=== PATIENT | male | born 1950 | race Caucasian/White ===

== ENCOUNTER → 2017-01-03 | Outpatient (CLI) | payer MEDICARE ==
[~2017-01-03] MED LIST: /LOR25TA PO; GABA300C2 PO; LOSA100T36 PO; MELO7.5T3 PO; NITR0.4D6 SL; OMEP40CA2 PO; TAMS0.4C PO; TYLE325T5 PO
--- NOTE | 2017-01-03 13:38 | REP ---
PA and lateral chest: Comparison is the portable chest of 06/25/2012. The lung leyva are clear. The cardiac size is normal The kristen, mediastinum, and bony thorax are unremarkable. Impression: Negative PA and lateral chest. Signed by Esequiel Rivas MD 01/03/2017 01:30 P
== END ==
LOC: M WUC 13:19
PROVIDERS: ATTEND Internal Medicine
DX: Z01.810 Encounter for preprocedural cardiovascular examination (principal); R05 Cough; Z72.0 Tobacco use

== ENCOUNTER → 2018-09-10 | Outpatient (CLI) | payer MEDICARE ==
--- NOTE | 2018-09-10 14:35 | REP ---
Clinical: Lung screening. History nicotine dependence. Comparison: 06/15/2012 Technique: Axial low-dose noncontrast images from the thoracic inlet to the upper abdomen using lung screening technique. Findings: The lung leyva are well-aerated. Subtle scattered areas of non solid ground-glass density are appreciated measuring up to 18 mm. No consolidation, significant nodule or mass lesion is appreciated. No pleural effusion/reaction or pneumothorax. Tracheobronchial tree is patent. Mediastinum demonstrates mild atherosclerotic changes of the coronary arteries without cardiomegaly. Impression: Lung-RADS category II. Management recommendations include annual low-dose CT evaluation. Electronically Signed by Tom Barron MD 09/10/2018 02:27 P
== END ==
LOC: M RAD 09:03
PROVIDERS: ATTEND Internal Medicine
DX: Z12.2 Encounter for screening for malignant neoplasm of respiratory organs (principal); F17.210 Nicotine dependence, cigarettes, uncomplicated; I25.10 Atherosclerotic heart disease of native coronary artery without angina pectoris

== ENCOUNTER → 2019-02-13 | Outpatient (CLI) | payer MEDICARE ==
[~2019-02-13] MED LIST changes: +AMLO5TAB6 PO; +ASPI81TA85 PO; +ATOR80TA59 PO; +LOSA100T50 PO; +MELO15TA28 PO; +METO1TAB32 PO; +NITR0.4S14 SL; +PANT40TA3 PO; +TAMS1CAP17 PO
--- NOTE | 2019-02-13 13:07 | REP ---
Chest, two views Indication: COPD, cough. Comparison: Two-view chest of 01/03/2017. Low-dose chest CT of 09/10/2018. Findings: The cardiomediastinal silhouette is normal. The pulmonary vascularity is normal. There is no suspicious pulmonary nodule or focal consolidation. The costophrenic angles are sharp. There are mild multilevel degenerative changes within thoracic spine, similar to prior. Impression: No acute cardiopulmonary process. Electronically Signed by Chi Silva MD 02/13/2019 12:58 P
== END ==
LOC: M WUC 11:11
PROVIDERS: ATTEND Internal Medicine
DX: R05 Cough (principal)

== ENCOUNTER 2019-05-07 10:46 | Day surgery (SDC) | payer MEDICARE ==
[~2019-05-07] VITALS: Ht 172.7 cm; Wt 74.8 kg
[~2019-05-07 10:46] MED LIST changes: +LIDOCAINE 2% INJ 100 MG/5 ML SDV (FOR ANES.) As Ordered ONE; +NS 1,000 ML IV ONE; +PROPOFOL 200 MG/20 ML VIAL As Ordered ONE
[2019-05-07] MEDS ORDERED: fentaNYL 100 MCG/2 ML INJECTION (J3010) As Ordered ONE (12:15)
[2019-05-07 13:33] VITALS: BP 138/69
--- NOTE | 2019-05-07 15:50 | ROOR ---
Patient Name: Cornell Delgado Procedure Date: 05/07/2019 12:47 PM Date of : 1950 Age: 68 Room: [facility] Gender: Male Note Status: Finalized Procedure: Upper GI endoscopy Indications: Suspected esophageal reflux, Abdominal bloating, Early satiety Providers: Ap Webster MD Referring MD: DES BANSAL JR, MD Requesting Provider: Medicines: Monitored Anesthesia Care Complications: No immediate complications. Procedure: Pre-Anesthesia Assessment: - Prior to the procedure, a History and Physical was performed, and patient medications and allergies were reviewed. The patient is competent. The risks and benefits of the procedure and the sedation options and risks were discussed with the patient. All questions were answered and informed consent was obtained. Patient identification and proposed procedure were verified by the physician, the nurse and the anesthesiologist in the procedure room. Mental Status Examination: alert and oriented. Airway Examination: normal oropharyngeal airway and neck mobility. CV Examination: regular rate and rhythm. Prophylactic Antibiotics: The patient does not require prophylactic antibiotics. Prior Anticoagulants: The patient has taken no previous anticoagulant or antiplatelet agents. ASA Grade Assessment: II - A patient with mild systemic disease. After reviewing the risks and benefits, the patient was deemed in satisfactory condition to undergo the procedure. The anesthesia plan was to use monitored anesthesia care (MAC). Immediately prior to administration of medications, the patient was re-assessed for adequacy to receive sedatives. The heart rate, respiratory rate, oxygen saturations, blood pressure, adequacy of pulmonary ventilation, and response to care were monitored throughout the procedure. The physical status of the patient was re-assessed after the procedure. The Endoscope was introduced through the mouth, and advanced to the second part of duodenum. The upper GI endoscopy was accomplished without difficulty. The patient tolerated the procedure well. Findings: A small cystic appearing mass was found in the oropharynx. The mass is not obstructing the airway. The examined esophagus was normal. The entire examined stomach was normal. The first portion of the duodenum was normal. This was biopsied with a cold forceps for Helicobacter pylori testing. The second portion of the duodenum was normal. This was biopsied with a cold forceps for histology. Impression: - Small cystic appearing mass found in the oropharynx, not obstructing the airway. This lesion appears benign. - Normal esophagus. - Normal stomach. - Normal first portion of the duodenum. Biopsied. - Normal second portion of the duodenum. Biopsied. Recommendation: - Discharge patient to home. - Resume previous diet. - Continue present medications. - Refer to an ENT specialist at appointment to be scheduled. Ap Webster MD Ap Webster MD 05/07/2019 2:01:23 PM Electronically signed by Ap Webster MD Number of Addenda: 0 Note Initiated On: 05/07/2019 12:47 PM Estimated Blood Loss: Estimated blood loss was minimal.
== END 2019-05-07 13:57 | disposition home or self-care (01) ==
LOC: M OPP 10:46
PROVIDERS: ATTEND Surgery
DX: D10.5 Benign neoplasm of other parts of oropharynx (principal); R14.0 Abdominal distension (gaseous); R68.81 Early satiety; F17.210 Nicotine dependence, cigarettes, uncomplicated; Z79.82 Long term (current) use of aspirin; Z79.899 Other long term (current) drug therapy
CPT/HCPCS: 43239; 88305; J3010

== ENCOUNTER → 2020-02-08 | Outpatient (CLI) | payer MEDICARE ==
[~2020-02-08] MED LIST changes: +AMLO1TAB24 PO; -AMLO5TAB6 PO; -ASPI81TA85 PO; +ASPI81TA86 PO; -LIDOCAINE 2% INJ 100 MG/5 ML SDV (FOR ANES.) As Ordered ONE; -NS 1,000 ML IV ONE; +PANT40TA29 PO; -PANT40TA3 PO; -PROPOFOL 200 MG/20 ML VIAL As Ordered ONE
--- NOTE | 2020-02-11 17:42 | REP ---
LUNG SCREENING CHEST CT: HISTORY: Lung screening. High risk factors. TECHNIQUE: Axial noncontrast images from the thoracic inlet to the upper abdomen. COMPARISON: 09/10/18, 06/15/12 FINDINGS: Subtle areas of non-solid, ground glass density and early fibrosis in a subpleural/peripheral distribution primarily noted along the anterior margin of the bilateral upper lobes as well as periphery of the right lower lobe again noted and similar to prior examination. A focal area of non-solid ground glass density in the apical right lower lobe measuring roughly 10 mm (image 31) as well as a similar focal non-solid density in the periphery of the lateral right lower lobe measuring 1.1 cm (image 73) are again noted and similar to prior examination. No focal consolidation, discrete nodule or mass lesion. No effusion. The tracheobronchial tree is patent. Atherosclerotic changes to the thoracic aorta and coronary arteries noted without cardiomegaly. Pericardial effusion/pericardial thickening is poorly evaluated, but appears relatively similar to prior examinations. IMPRESSION: Primarily peripheral/subpleural ground glass opacities and mild fibrosis, as described above, similar to prior examination. Lung-RADS category 2. Management recommendations include annual low dose follow up evaluation. MTDD
== END ==
LOC: M RAD 07:20
PROVIDERS: ATTEND Internal Medicine
DX: R91.8 Other nonspecific abnormal finding of lung field (principal); F17.210 Nicotine dependence, cigarettes, uncomplicated; Z12.2 Encounter for screening for malignant neoplasm of respiratory organs

== ENCOUNTER → 2020-10-24 | Outpatient (CLI) | payer MEDICARE ==
[2020-10-24 12:19] LABS: BASO # 0.1 10^3/uL (0.0-0.2); BASO % 0.5 % (0.0-1.0); EOS # 0.1 10^3/uL (0.0-0.5); EOS % 0.5 % (0.0-3.0); HEMATOCRIT 46.6 % (42.0-52.0); LYMPH # 2.1 10^3/uL (1.5-5.0); LYMPH % 16.3 % (24.0-44.0); MEAN CORPUSCULAR HEMOGLOBIN 29.7 pg (27.0-33.0); MEAN CORPUSCULAR HGB CONC 32.2 g/dl (32.0-36.5); MEAN CORPUSCULAR VOLUME 92.3 fl (80.0-96.0); MONO # 0.6 10^3/uL (0.0-0.8); MONO % 4.5 % (2.0-8.0); NEUTROPHILS # 10.1 10^3/uL (1.5-8.5); NEUTROPHILS % 77.6 % (36.0-66.0); PLATELET COUNT, AUTOMATED 320 10^3/uL (150-450); RED BLOOD COUNT 5.05 10^6/uL (4.30-6.10)
[2020-10-24 12:42] LABS: BLOOD UREA NITROGEN 9 MG/DL (7-18); CALCIUM LEVEL 9.4 MG/DL (8.8-10.2); CARBON DIOXIDE LEVEL 28 MEQ/L (21-32); CHLORIDE LEVEL 106 MEQ/L (98-107); CREATININE FOR GFR 1.07 MG/DL (0.70-1.30); GLOMERULAR FILTRATION RATE > 60.0 (>49); GLUCOSE, FASTING 106 MG/DL (70-100); POTASSIUM SERUM 4.1 MEQ/L (3.5-5.1); SODIUM LEVEL 139 MEQ/L (136-145)
--- NOTE | 2020-10-24 12:51 | REP ---
INDICATION: LT TESTICULAR PAIN / LABS 1ST. COMPARISON: None. TECHNIQUE: Real-time sonographic evaluation of scrotum and contents performed. FINDINGS: The testicles are normal in size and echotexture, right testicle measuring 3.6 x 1.9 x 2.9 cm and left testicle 3.4 x 2.4 x 2.5 cm. There is no testicular mass or torsion. Blood flow is seen in each testicle with duplex Doppler evaluation. There are 2 cysts in the head of the right epididymis measuring 5 mm and 7 mm in maximum diameter. There is a 5 mm cyst in the head of the left epididymis. There are moderate bilateral hydroceles. The left epididymis is enlarged and hyperemic compatible with epididymitis. IMPRESSION: No testicular mass or torsion. Findings compatible with left-sided epididymitis. Moderate bilateral hydroceles. <Electronically signed by Esequiel Oropeza > 10/24/20 [id number]
== END ==
LOC: M LAB 11:51
PROVIDERS: ATTEND Physician Assistant
DX: N50.812 Left testicular pain (principal)

== ENCOUNTER → 2020-11-09 | Outpatient (REF) | payer MEDICARE | LOC: M LAB REF 12:26 | PROVIDERS: ATTEND Physician Assistant Medical | DX: R30.0 Dysuria (principal); N40.1 Benign prostatic hyperplasia with lower urinary tract symptoms ==

== ENCOUNTER → 2020-11-18 | Outpatient (CLI) | payer MEDICARE ==
--- NOTE | 2020-11-18 16:24 | REP ---
INDICATION: LLQ PAIN /MASS, SWELLING / ? HERNIA. COMPARISON: None. TECHNIQUE: Real-time sonographic evaluation of inguinal regions performed at rest and with Valsalva maneuver. FINDINGS: There is mesh material at the right inguinal ring with no evidence of hernia and that region. Superior to the left internal inguinal ring there is a complex fluid collection 11.2 x 2.5 x 8.8 cm. Within the fluid collection there appears to be mesh material which is malformed and displaced from the left inguinal ring. Fat is seen within the proximal aspect of the left inguinal canal. No bowel extends into the left inguinal canal. IMPRESSION: No right inguinal hernia. Small left inguinal hernia contains fat. Superior to the left internal inguinal ring there is a complex fluid collection measuring 11.2 x 2.5 x 8.8 cm containing displaced mesh material. <Electronically signed by Esequiel Oropeza > 11/18/20 [id number]
== END ==
LOC: M RAD 15:03
PROVIDERS: ATTEND Physician Assistant Medical
DX: K40.31 Unilateral inguinal hernia, with obstruction, without gangrene, recurrent (principal); T83.718A Erosion of other implanted mesh to organ or tissue, initial encounter; Y73.2 Prosthetic and other implants, materials and accessory gastroenterology and urology devices associated with adverse incidents

== ENCOUNTER → 2021-01-16 | Outpatient (CLI) | payer MEDICARE | LOC: M LABSMTC 09:35 | PROVIDERS: ATTEND Anesthesiology | DX: Z01.812 Encounter for preprocedural laboratory examination (principal); Z20.822 Contact with and (suspected) exposure to COVID-19 ==

== ENCOUNTER 2021-01-20 06:02 | Day surgery (SDC) | payer MEDICARE ==
[~2021-01-20] VITALS: Ht 172.7 cm; Wt 73.2 kg
[~2021-01-20 06:02] MED LIST changes: +LR 1,000 ML IV ONE; +ceFAZolin SOD 2 GM in IV 1 EA IV ONE
[2021-01-20] MEDS ORDERED: ASPI81CH33 PO (06:39)
[2021-01-20] MEDS ORDERED: BUPIVACAINE/EPIN 0.25% 30 ML VIAL As Ordered ONE (07:08)
[2021-01-20] MEDS ORDERED: fentaNYL 100 MCG/2 ML INJECTION (J3010) As Ordered ONE ×3 (07:18→08:51)
[2021-01-20] MEDS ORDERED: ROCURONIUM BROMIDE 50 MG/5 ML VIAL As Ordered ONE (07:19)
[2021-01-20] MEDS ORDERED: propofoL 200 MG/20 ML VIAL As Ordered ONE (07:19)
[2021-01-20] MEDS ORDERED: ONDANSETRON 4MG/2ML VIAL As Ordered ONE (07:19)
[2021-01-20] MEDS ORDERED: LIDOCAINE 2% 100MG/5ML SDV (FOR ANES.) As Ordered ONE (07:19)
[2021-01-20] MEDS ORDERED: dexameTHASONE 4 MG/ML 1ML VIAL (J1100 PER 1MG) As Ordered ONE (07:19)
[2021-01-20] MEDS ORDERED: MIDAZOLAM INJ 2MG/2ML VIAL (J2250 PER 1MG) As Ordered ONE (07:19)
[2021-01-20] MEDS ORDERED: ACETAMINOPHEN 1000MG 100ML IV BTL (OFIRMEV) (J0131 PER 10MG) As Ordered ONE (07:45)
[2021-01-20] MEDS ORDERED: KETOROLAC 60MG 2ML VIAL As Ordered ONE (07:46)
[2021-01-20] MEDS ORDERED: fentaNYL 100 MCG/2 ML INJECTION (J3010) IV PRN (09:10)
[2021-01-20] MEDS ORDERED: LR 1,000 ML IV SCH (09:10)
[2021-01-20] MEDS ORDERED: oxyCODONE 5MG TAB PO PRN (09:10)
[2021-01-20] MEDS ORDERED: ONDANSETRON 4MG/2ML VIAL IV PRN (09:10)
[2021-01-20] MEDS ORDERED: NORCO, ANEXSIA 5/325MG TABLET (HYDROcodone/ACETAMINOPHEN) PO PRN (09:15)
[2021-01-20 10:10] VITALS: BP 141/68
--- NOTE | 2021-01-20 11:09 | RO ---
OPERATIVE NOTE DATE OF OPERATION: 01/20/2021 PREOPERATIVE DIAGNOSIS: Infected left groin mesh and recurrent left inguinal hernia. POSTOPERATIVE DIAGNOSIS: Infected left groin mesh and recurrent left inguinal hernia. PROCEDURE: Open removal of infected left groin mesh with washout and drain placement. SURGEON: Esequiel Elizondo DO COMMUNITY LIAISON: ANESTHESIA: General. ESTIMATED BLOOD LOSS: 5 mL COMPLICATIONS: None. INDICATIONS FOR PROCEDURE: The patient is a 70-year-old male who presents with a history of a previous open left inguinal hernia repair with mesh placement. Recently he had a epididymitis infection that subsequently infected the left groin mesh. He came in today with plans for recurrent inguinal hernia repair along with mesh removal. However, in preop when I was examining him, since his visit in the office, his groin has gotten extremely inflamed, very swollen, very tender to palpation. I am concerned that his infection is very [id number] at this point. Recommendation was to just remove the mesh and not attempt repair of the hernia at this time. Risks and benefits of the procedure are not limited to but include bleeding, infection, hernia recurrence, hernia formation, damage to surrounding structures, need for further surgery were discussed in detail with the patient. Informed consent was obtained and procedure is planned. DESCRIPTION OF PROCEDURE: The patient was brought back to operating room 7. After sufficient general sedation, the abdomen sterilely prepped and draped. Next, a timeout was done to confirm proper patient and proper procedure. Following that, a 7 cm incision was made in the left groin over a previous inguinal hernia incision. Incision was carried down inferiorly until the pus pocket was reached. Once it was reached, cultures were taken for both aerobic and anaerobic cultures. The pocket was then aspirated with all the fluid. There were a couple hundred mL of purulent fluid in there. Once that was all removed, the mesh was identified. Using a combination of sharp and blunt dissection, I was able to carefully dissect the mesh free from the cord structures. Once that was completed and all the mesh was completely removed, the pocket was irrigated copiously with saline. A 7 Serbian flat drain was placed inside of the defect. The fascia was closed over top of it with a 2-0 V-Loc and the skin was closed with baron. The drain was sutured in place with a 2-0 silk. The area was then washed and dried. 4x4 and tape were applied, this ending the procedure.
== END 2021-01-20 10:10 | disposition home or self-care (01) ==
LOC: M SDC 06:02
PROVIDERS: ATTEND Surgery
DX: T85.79XA Infection and inflammatory reaction due to other internal prosthetic devices, implants and grafts, initial encounter (principal); K40.91 Unilateral inguinal hernia, without obstruction or gangrene, recurrent; I25.10 Atherosclerotic heart disease of native coronary artery without angina pectoris; I10 Essential (primary) hypertension; E78.5 Hyperlipidemia, unspecified; K21.9 Gastro-esophageal reflux disease without esophagitis; J44.9 Chronic obstructive pulmonary disease, unspecified; Z98.61 Coronary angioplasty status; F17.218 Nicotine dependence, cigarettes, with other nicotine-induced disorders; N40.0 Benign prostatic hyperplasia without lower urinary tract symptoms; Z79.82 Long term (current) use of aspirin; Z79.899 Other long term (current) drug therapy
CPT/HCPCS: 10180; 11008; 87070; 87075; 87077; 87186; 87205; 88300; J0131; J0690; J1100; J1885; J2250; J2405; J3010

== ENCOUNTER → 2021-03-03 | Outpatient (CLI) | payer MEDICARE ==
[~2021-03-03] MED LIST changes: +ASPI81CH33 PO; +LOSA100T45 PO; -LOSA100T50 PO; -LR 1,000 ML IV ONE; -ceFAZolin SOD 2 GM in IV 1 EA IV ONE
== END ==
LOC: M RAD 13:12
PROVIDERS: ATTEND Internal Medicine
DX: F17.210 Nicotine dependence, cigarettes, uncomplicated (principal)

== ENCOUNTER → 2021-03-30 | Outpatient (REF) | payer MEDICARE ==
[~2021-03-30] MED LIST changes: -LOSA100T45 PO; +LOSA100T50 PO
[2021-03-30 16:57] LABS: PERCENT SATURATION 18.8 % (19.7-50.0)
== END ==
LOC: M LAB REF 16:08
PROVIDERS: ATTEND Internal Medicine
DX: R97.20 Elevated prostate specific antigen [PSA] (principal); R74.01 Elevation of levels of liver transaminase levels; I25.10 Atherosclerotic heart disease of native coronary artery without angina pectoris

== ENCOUNTER → 2021-05-08 | Outpatient (CLI) | payer MEDICARE ==
--- NOTE | 2021-05-08 08:50 | REP ---
INDICATION: ELEVATED LFT'S COMPARISON: None. TECHNIQUE: Real time galvin scale ultrasound examination using curved array transducer. FINDINGS: Liver includes 1.5 cm and 0.5 cm benign-appearing cysts in the right lobe and small echogenic focus likely granuloma. No further significant hepatic abnormalities are identified. Pancreas is incompletely evaluated due to interposed bowel gas. The gallbladder is normal and without gallstones, wall thickening, or pericholecystic fluid. No biliary ductal dilatation is appreciated and the common bile duct measures 4.1 mm diameter. Right kidney is normal in reniform shape without hydronephrosis and measures 10.6 x 5.2 x 5.0 cm with a 10 mm midpole cortical cyst. No ascites in the visualized right upper quadrant. IMPRESSION: Essentially normal limited right upper quadrant ultrasound <Electronically signed by Tom Barron > 05/08/21 [id number]
== END ==
LOC: M RAD 07:55
PROVIDERS: ATTEND Internal Medicine
DX: R74.01 Elevation of levels of liver transaminase levels (principal)

== ENCOUNTER → 2021-06-07 | Outpatient (REF) | payer MEDICARE ==
[2021-06-07 12:55] LABS: ALBUMIN 3.8 GM/DL (3.2-5.2); BILIRUBIN,DIRECT 0.1 MG/DL (0.0-0.2); BILIRUBIN,TOTAL 0.4 MG/DL (0.2-1.0); TOTAL PROTEIN 7.5 GM/DL (6.4-8.2)
== END ==
LOC: M LAB REF 11:51
PROVIDERS: ATTEND Internal Medicine
DX: R74.01 Elevation of levels of liver transaminase levels (principal)

== ENCOUNTER → 2021-10-26 | Outpatient (REF) | payer MEDICARE ==
[~2021-10-26] MED LIST changes: +LOSA100T45 PO; -LOSA100T50 PO
[2021-10-26 17:36] LABS: APPEARANCE, URINE CLEAR (CLEAR); BACTERIA, URINE AUTO NEGATIVE (NEGATIVE); BILIRUBIN, URINE AUTO NEGATIVE (NEGATIVE); BLOOD, URINE BLOOD 1+ (NEGATIVE); COLOR, URINE YELLOW (YELLOW); GLUCOSE, URINE (UA) AUTO NEGATIVE (NEGATIVE); KETONE, URINE AUTO NEGATIVE (NEGATIVE); LEUKOCYTE ESTERASE, URINE AUTO NEGATIVE (NEGATIVE); MUCUS, URINE SMALL (NEGATIVE); NITRITE, URINE AUTO NEGATIVE (NEGATIVE); PROTEIN, URINE AUTO NEGATIVE (NEGATIVE); RBC, URINE AUTO 2 /HPF (0-3); SPECIFIC GRAVITY URINE AUTO 1.016 (1.002-1.035); SQUAMOUS EPITHELIAL CELL UR AU 0 /HPF (0-6); UROBILINOGEN, URINE AUTO 0.2 mg/dL (0.0-2.0); WBC, URINE AUTO 0 /HPF (0-3)
== END ==
LOC: M SMT 16:57
PROVIDERS: ATTEND Physician Assistant
DX: R97.20 Elevated prostate specific antigen [PSA] (principal)

== ENCOUNTER → 2021-10-30 | Outpatient (CLI) | payer MEDICARE ==
[2021-10-30 12:52] LABS: BLOOD UREA NITROGEN 16 MG/DL (7-18); CARBON DIOXIDE LEVEL 27 MEQ/L (21-32); CHLORIDE LEVEL 107 MEQ/L (98-107); CREATININE FOR GFR 1.12 MG/DL (0.70-1.30); GLOMERULAR FILTRATION RATE > 60.0 (>42); GLUCOSE, FASTING 88 MG/DL (70-100); POTASSIUM SERUM 4.2 MEQ/L (3.5-5.1); SODIUM LEVEL 139 MEQ/L (136-145)
== END ==
LOC: M LAB 11:27
PROVIDERS: ATTEND Physician Assistant
DX: R31.0 Gross hematuria (principal)

== ENCOUNTER → 2021-11-08 | Outpatient (REF) | payer MEDICARE | LOC: M SMT PRO 09:08 | PROVIDERS: ATTEND Urology | DX: R97.20 Elevated prostate specific antigen [PSA] (principal) ==

== ENCOUNTER → 2021-11-09 | Outpatient (CLI) | payer MEDICARE ==
[~2021-11-09] MED LIST changes: +ISOVUE-370 76% 100ML VIAL As Ordered ONE
== END ==
LOC: M RAD 10:36
PROVIDERS: ATTEND Physician Assistant
DX: R93.41 Abnormal radiologic findings on diagnostic imaging of renal pelvis, ureter, or bladder (principal)
CPT/HCPCS: 74178; Q9967

== ENCOUNTER → 2021-11-27 | Outpatient (CLI) | payer MEDICARE ==
[~2021-11-27] MED LIST changes: -ISOVUE-370 76% 100ML VIAL As Ordered ONE
[2021-11-27 10:31] LABS: BASO # 0.1 10^3/uL (0.0-0.2); BASO % 0.6 % (0.0-1.0); EOS # 0.1 10^3/uL (0.0-0.5); HEMATOCRIT 49.8 % (42.0-52.0); HEMOGLOBIN 16.5 g/dl (13.5-17.5); LYMPH # 2.4 10^3/uL (1.5-5.0); LYMPH % 20.6 % (24.0-44.0); MEAN CORPUSCULAR HEMOGLOBIN 30.3 pg (27.0-33.0); MEAN CORPUSCULAR HGB CONC 33.1 g/dl (32.0-36.5); MEAN CORPUSCULAR VOLUME 91.4 fl (80.0-96.0); MONO # 0.5 10^3/uL (0.0-0.8); MONO % 4.6 % (2.0-8.0); NEUTROPHILS # 8.4 10^3/uL (1.5-8.5); NEUTROPHILS % 72.8 % (36.0-66.0); PLATELET COUNT, AUTOMATED 172 10^3/uL (150-450); RED BLOOD COUNT 5.45 10^6/uL (4.30-6.10); WHITE BLOOD COUNT 11.5 10^3/uL (4.0-10.0)
[2021-11-27 10:31] LABS: APPEARANCE, URINE CLEAR (CLEAR); BACTERIA, URINE AUTO NEGATIVE (NEGATIVE); BILIRUBIN, URINE AUTO NEGATIVE (NEGATIVE); BLOOD, URINE BLOOD 1+ (NEGATIVE); COLOR, URINE STRAW (YELLOW); GLUCOSE, URINE (UA) AUTO NEGATIVE (NEGATIVE); KETONE, URINE AUTO NEGATIVE (NEGATIVE); LEUKOCYTE ESTERASE, URINE AUTO NEGATIVE (NEGATIVE); NITRITE, URINE AUTO NEGATIVE (NEGATIVE); PROTEIN, URINE AUTO NEGATIVE (NEGATIVE); RBC, URINE AUTO 0 /HPF (0-3); SPECIFIC GRAVITY URINE AUTO 1.002 (1.002-1.035); SQUAMOUS EPITHELIAL CELL UR AU 0 /HPF (0-6); UROBILINOGEN, URINE AUTO 0.2 mg/dL (0.0-2.0); WBC, URINE AUTO 0 /HPF (0-3)
[2021-11-27 10:54] LABS: BLOOD UREA NITROGEN 15 MG/DL (7-18); CALCIUM LEVEL 9.6 MG/DL (8.8-10.2); CARBON DIOXIDE LEVEL 24 MEQ/L (21-32); CHLORIDE LEVEL 108 MEQ/L (98-107); CREATININE FOR GFR 1.09 MG/DL (0.70-1.30); GLOMERULAR FILTRATION RATE > 60.0 (>42); GLUCOSE, FASTING 105 MG/DL (70-100); POTASSIUM SERUM 4.7 MEQ/L (3.5-5.1); SODIUM LEVEL 139 MEQ/L (136-145)
== END ==
LOC: M RAD 09:35
PROVIDERS: ATTEND Physician Assistant
DX: R97.20 Elevated prostate specific antigen [PSA] (principal); R91.8 Other nonspecific abnormal finding of lung field; Z79.899 Other long term (current) drug therapy

== ENCOUNTER → 2021-12-03 | Outpatient (CLI) | payer MEDICARE ==
[~2021-12-03] MED LIST changes: +FINA5TAB2 PO
== END ==
LOC: M LABSMTC 12:19
PROVIDERS: ATTEND Anesthesiology
DX: Z01.818 Encounter for other preprocedural examination (principal); Z11.52 Encounter for screening for COVID-19

== ENCOUNTER 2021-12-06 07:41 | Day surgery (SDC) | payer MEDICARE ==
[~2021-12-06] VITALS: Ht 172.7 cm; Wt 76.4 kg
[2021-12-06] MEDS ORDERED: ceFAZolin SOD 2 GM in IV 1 EA IV ONE (07:50)
[2021-12-06] MEDS ORDERED: LR 1,000 ML IV SCH ×2 (08:10→13:20)
[2021-12-06] MEDS ORDERED: propofoL 200 MG/20 ML VIAL As Ordered ONE ×2 (10:21→13:17)
[2021-12-06] MEDS ORDERED: LIDOCAINE 2% 100MG/5ML SDV (FOR ANES.) As Ordered ONE (10:21)
[2021-12-06] MEDS ORDERED: fentaNYL 100 MCG/2 ML INJECTION As Ordered ONE ×2 (10:22→12:50)
[2021-12-06] MEDS ORDERED: ONDANSETRON 4MG/2ML VIAL As Ordered ONE (10:47)
[2021-12-06] MEDS ORDERED: ACETAMINOPHEN 1000MG 100ML IV BTL (OFIRMEV) (J0131 PER 10MG) As Ordered ONE ×2 (11:36→12:38)
[2021-12-06] MEDS ORDERED: ESMOLOL INJ 100MG/10ML VIAL As Ordered ONE (11:51)
[2021-12-06] MEDS ORDERED: LABETALOL 100MG/20ML VIAL As Ordered ONE (12:00)
[2021-12-06] MEDS ORDERED: ROCURONIUM BROMIDE 50 MG/5 ML VIAL As Ordered ONE (12:40)
[2021-12-06] MEDS ORDERED: SUGAMMADEX SODIUM 500 MG/5 ML VIAL (BRIDION) As Ordered ONE (12:53)
[2021-12-06] MEDS ORDERED: FUROSEMIDE 100MG/10ML VIAL (J1940) As Ordered ONE (13:06)
[2021-12-06] MEDS ORDERED: MORPHINE 2 MG/ML 1ML VIAL IV PRN (13:20)
[2021-12-06] MEDS ORDERED: ONDANSETRON 4MG/2ML VIAL IV PRN (13:20)
[2021-12-06] MEDS ORDERED: BACT800T5 PO (13:34)
[2021-12-06] MEDS: oxyCODONE 5MG TAB PO PRN ×2 (13:43→14:11)
[2021-12-06] MEDS: fentaNYL 100 MCG/2 ML INJECTION IV PRN ×4 (13:43→14:01)
[2021-12-06] MEDS ORDERED: ACETAMINOPHEN TAB 650MG DOSE (2X325MG) PO PRN (14:10)
[2021-12-06 14:30] VITALS: BP 145/73
== END 2021-12-06 14:54 | disposition home or self-care (01) ==
LOC: M SDC 07:41
PROVIDERS: ATTEND Urology
DX: N40.1 Benign prostatic hyperplasia with lower urinary tract symptoms (principal); N30.10 Interstitial cystitis (chronic) without hematuria; N32.9 Bladder disorder, unspecified; I10 Essential (primary) hypertension; J44.9 Chronic obstructive pulmonary disease, unspecified; I25.10 Atherosclerotic heart disease of native coronary artery without angina pectoris; Z98.61 Coronary angioplasty status; K21.9 Gastro-esophageal reflux disease without esophagitis; Z79.82 Long term (current) use of aspirin; Z79.899 Other long term (current) drug therapy
CPT/HCPCS: 52204; 52601; 88307; J0131; J0690; J1940; J2405; J3010

== ENCOUNTER → 2022-01-11 | Outpatient (CLI) | payer MEDICARE ==
[~2022-01-11] MED LIST changes: +BACT800T5 PO
== END ==
LOC: M SOG 08:17
PROVIDERS: ATTEND Physician Assistant
DX: M19.041 Primary osteoarthritis, right hand (principal); M65.341 Trigger finger, right ring finger

== ENCOUNTER → 2022-01-11 | Outpatient (REF) | payer MEDICARE ==
[2022-01-11 18:08] LABS: APPEARANCE, URINE CLOUDY (CLEAR); BACTERIA, URINE AUTO 1+ (NEGATIVE); BILIRUBIN, URINE AUTO NEGATIVE (NEGATIVE); BLOOD, URINE BLOOD 3+ (NEGATIVE); COLOR, URINE YELLOW (YELLOW); GLUCOSE, URINE (UA) AUTO NEGATIVE (NEGATIVE); KETONE, URINE AUTO NEGATIVE (NEGATIVE); LEUKOCYTE ESTERASE, URINE AUTO 3+ (NEGATIVE); NITRITE, URINE AUTO NEGATIVE (NEGATIVE); PROTEIN, URINE AUTO 2+ mg/dL (NEGATIVE); RBC, URINE AUTO TNTC /HPF (0-3); SPECIFIC GRAVITY URINE AUTO 1.019 (1.002-1.035); SQUAMOUS EPITHELIAL CELL UR AU 0 /HPF (0-6); UROBILINOGEN, URINE AUTO 0.2 mg/dL (0.0-2.0); WBC, URINE AUTO TNTC /HPF (0-3)
== END ==
LOC: M SMT 16:57
PROVIDERS: ATTEND Urology
DX: N39.0 Urinary tract infection, site not specified (principal)

== ENCOUNTER → 2022-02-11 | Outpatient (CLI) | payer MEDICARE | LOC: M LABSMTC 10:10 | PROVIDERS: ATTEND Anesthesiology | DX: Z01.812 Encounter for preprocedural laboratory examination (principal) ==

== ENCOUNTER 2022-02-14 06:39 | Day surgery (SDC) | payer MEDICARE ==
[~2022-02-14] VITALS: Ht 172.7 cm; Wt 76.2 kg
[~2022-02-14 06:39] MED LIST changes: +LIDOCAINE W/EPINEPHRINE 1% 20ML VIAL XX ONE; +SODIUM BICARBONATE 8.4% INJ 50MEQ 50 ML VIAL XX ONE
[2022-02-14] MEDS ORDERED: BACITRACIN OINTMENT 30GM TUBE As Ordered ONE (08:38)
[2022-02-14 09:35] VITALS: BP 145/74
== END 2022-02-14 10:13 | disposition home or self-care (01) ==
LOC: M SDC 06:39
PROVIDERS: ATTEND Orthopaedic Surgery Hand Surgery
DX: M65.341 Trigger finger, right ring finger (principal)

== ENCOUNTER → 2022-04-18 | Outpatient (CLI) | payer MEDICARE ==
[~2022-04-18] MED LIST changes: -LIDOCAINE W/EPINEPHRINE 1% 20ML VIAL XX ONE; -SODIUM BICARBONATE 8.4% INJ 50MEQ 50 ML VIAL XX ONE
== END ==
LOC: M RAD 11:58
PROVIDERS: ATTEND Internal Medicine
DX: I65.23 Occlusion and stenosis of bilateral carotid arteries (principal)

== ENCOUNTER → 2022-06-05 | Outpatient (CLI) | payer MEDICARE | LOC: M RAD 10:00 | PROVIDERS: ATTEND Internal Medicine | DX: R91.1 Solitary pulmonary nodule (principal); F17.210 Nicotine dependence, cigarettes, uncomplicated ==

== ENCOUNTER → 2022-07-20 | Outpatient (CLI) | payer MEDICARE | LOC: M RAD 09:24 | PROVIDERS: ATTEND Internal Medicine Pulmonary Disease | DX: R91.8 Other nonspecific abnormal finding of lung field (principal) ==

== ENCOUNTER → 2022-07-26 | Outpatient (CLI) | payer MEDICARE ==
[2022-07-26 14:52] LABS: PLATELET COUNT, AUTOMATED 205 10^3/uL (150-450)
[2022-07-26 15:05] LABS: INR 0.94; PROTHROMBIN TIME 12.8 SECONDS (12.5-14.5)
[2022-07-26 15:06] LABS: PARTIAL THROMBOPLASTIN TIME 31.8 SECONDS (24.8-34.2)
== END ==
LOC: M LAB 14:16
PROVIDERS: ATTEND Internal Medicine Pulmonary Disease
DX: Z01.812 Encounter for preprocedural laboratory examination (principal)

== ENCOUNTER → 2022-08-03 | Outpatient (CLI) | payer MEDICARE | LOC: M LABSMTC 07:37 | PROVIDERS: ATTEND Anesthesiology | DX: Z01.812 Encounter for preprocedural laboratory examination (principal); Z20.822 Contact with and (suspected) exposure to COVID-19 ==

== ENCOUNTER → 2022-08-07 | Outpatient (CLI) | payer MEDICARE | LOC: M CARPUL 08:38 | PROVIDERS: ATTEND Internal Medicine Pulmonary Disease | DX: J44.9 Chronic obstructive pulmonary disease, unspecified (principal) ==

== ENCOUNTER 2022-08-08 06:13 | Day surgery (SDC) | payer MEDICARE ==
[~2022-08-08] VITALS: Ht 172.7 cm; Wt 80.0 kg
[~2022-08-08 06:13] MED LIST changes: +ALBUTEROL SULFATE 2.5MG/0.5ML INH NEB SOLN INH ONE; +LIDOCAINE PRES-FREE 2% 10ML AMP INH ONE
[2022-08-08] MEDS ORDERED: LR 1,000 ML IV SCH ×2 (06:30→09:15)
[2022-08-08] MEDS ORDERED: propofoL 200 MG/20 ML VIAL As Ordered ONE (06:48)
[2022-08-08] MEDS ORDERED: fentaNYL 100 MCG/2 ML INJECTION As Ordered ONE (06:48)
[2022-08-08] MEDS ORDERED: MIDAZOLAM INJ 2MG/2ML VIAL As Ordered ONE (06:48)
[2022-08-08] MEDS ORDERED: ROCURONIUM BROMIDE 50MG/5ML VIAL As Ordered ONE ×2 (06:49→08:42)
[2022-08-08] MEDS ORDERED: ONDANSETRON 4MG 2ML VIAL As Ordered ONE (06:49)
[2022-08-08] MEDS ORDERED: GLYCOPYRROLATE INJ 0.2 MG/ML 2 ML VIAL As Ordered ONE (06:49)
[2022-08-08] MEDS ORDERED: THROMBIN 5,000 UNITS VIAL As Ordered ONE (07:27)
[2022-08-08] MEDS ORDERED: CETACAINE SPRAY 5GM As Ordered ONE (07:27)
[2022-08-08] MEDS ORDERED: EPINEPHrine 1MG/10ML SYRINGE 1.5IN As Ordered ONE (07:28)
[2022-08-08] MEDS ORDERED: PHENYLephrine 500MCG 5ML (100MCG/ML) SYRINGE As Ordered ONE (08:03)
[2022-08-08] MEDS ORDERED: ePHEDrine SULFATE 25 MG/5 ML(5MG/ML) SYRINGE As Ordered ONE (08:03)
[2022-08-08] MEDS ORDERED: METOPROLOL 5 MG/5 ML VIAL As Ordered ONE (08:14)
[2022-08-08] MEDS ORDERED: VASOPRESSIN INJ 20UNITS/ML 1ML VIAL As Ordered ONE (08:34)
[2022-08-08] MEDS ORDERED: CALCIUM CHLORIDE 10% 1 GM/10 ML SYR As Ordered ONE (08:46)
[2022-08-08] MEDS ORDERED: SUGAMMADEX SODIUM 500 MG/5 ML VIAL (BRIDION) As Ordered ONE (09:06)
[2022-08-08] MEDS ORDERED: oxyCODONE 5MG TAB PO PRN (09:15)
[2022-08-08] MEDS ORDERED: fentaNYL 100 MCG/2 ML INJECTION IV PRN (09:15)
[2022-08-08] MEDS ORDERED: ONDANSETRON 4MG 2ML VIAL IV PRN (09:15)
[2022-08-08] MEDS ORDERED: IPRATROPIUM 0.5MG/ALBUTEROL 2.5MG INH SOL UD 3ML (DUONEB) As Ordered ONE (09:23)
[2022-08-08] MEDS ORDERED: IPRATROPIUM 0.5MG/ALBUTEROL 2.5MG INH SOL UD 3ML (DUONEB) NEB ONE (09:25)
[2022-08-08] MEDS ORDERED: BUDESONIDE 0.5 MG/2 ML INHALATION SUSPENSION INH ONE (09:25)
[2022-08-08 10:37] VITALS: BP 135/64
[2022-08-23] MEDS ORDERED: ALBU8.5H INH (14:28)
[2022-08-23] MEDS ORDERED: NICO1DIS11 TD (14:28)
[2022-09-05] MEDS ORDERED: ASPI-161 PO (10:47)
[2022-09-05] MEDS ORDERED: AMLO1TAB24 PO (10:47)
[2022-09-05] MEDS ORDERED: PANT40TA29 PO (10:47)
[2022-09-05] MEDS ORDERED: NITR0.4S14 SL (10:47)
[2022-09-05] MEDS ORDERED: LOSA100T45 PO (10:47)
[2022-09-05] MEDS ORDERED: ATOR80TA59 PO (10:47)
== END 2022-08-08 10:47 | disposition home or self-care (01) ==
LOC: M SDC 06:13
PROVIDERS: ATTEND Internal Medicine Pulmonary Disease
DX: R91.8 Other nonspecific abnormal finding of lung field (principal); J44.9 Chronic obstructive pulmonary disease, unspecified; I10 Essential (primary) hypertension; E78.5 Hyperlipidemia, unspecified; I25.10 Atherosclerotic heart disease of native coronary artery without angina pectoris; Z98.61 Coronary angioplasty status; F17.218 Nicotine dependence, cigarettes, with other nicotine-induced disorders; R05.3 Chronic cough; K21.9 Gastro-esophageal reflux disease without esophagitis; N40.0 Benign prostatic hyperplasia without lower urinary tract symptoms; I73.9 Peripheral vascular disease, unspecified; Z79.899 Other long term (current) drug therapy; Z79.82 Long term (current) use of aspirin
CPT/HCPCS: 31623; 31624; 31627; 31628; 31629; 31654; 71045; 76000; 87070; 87102; 87116; 87186; 87205; 87206; 88104; 88108; 88173; 88305; 88313; J0171; J1100; J2250; J2370; J2405; J3010

== ENCOUNTER → 2022-08-13 | Outpatient (CLI) | payer MEDICARE ==
[~2022-08-13] MED LIST changes: -ALBUTEROL SULFATE 2.5MG/0.5ML INH NEB SOLN INH ONE; -LIDOCAINE PRES-FREE 2% 10ML AMP INH ONE
== END ==
LOC: M PLARAD 08:59
PROVIDERS: ATTEND Internal Medicine
DX: R91.1 Solitary pulmonary nodule (principal)
CPT/HCPCS: 78815; A9552

== ENCOUNTER → 2022-08-20 | Outpatient (CLI) | payer MEDICARE | LOC: M CARPUL 14:21 | PROVIDERS: ATTEND Internal Medicine Pulmonary Disease | DX: I31.39 Other pericardial effusion (noninflammatory) (principal) ==

== ENCOUNTER → 2022-08-23 | Outpatient (CLI) | payer MEDICARE ==
[~2022-08-23] MED LIST changes: +ALBU8.5H INH; +NICO1DIS11 TD
== END ==
LOC: M ONCR 13:57
PROVIDERS: ATTEND General Practice
DX: R91.8 Other nonspecific abnormal finding of lung field (principal); F17.218 Nicotine dependence, cigarettes, with other nicotine-induced disorders; J90 Pleural effusion, not elsewhere classified; R31.9 Hematuria, unspecified

== ENCOUNTER → 2022-09-05 | Outpatient (CLI) | payer MEDICARE ==
[~2022-09-05] MED LIST changes: +ASPI-161 PO; +HOME MED LIST COMPLETE! XX SCH; +LIDOCAINE 1% MDV 20ML VIAL As Ordered ONE
[2022-09-05 13:30] VITALS: BP 157/75
== END ==
LOC: M IRPRO 09:41
PROVIDERS: ATTEND General Practice
DX: C34.12 Malignant neoplasm of upper lobe, left bronchus or lung (principal); J91.0 Malignant pleural effusion

== ENCOUNTER → 2022-09-07 | Outpatient (CLI) | payer MEDICARE ==
[~2022-09-07] MED LIST changes: -HOME MED LIST COMPLETE! XX SCH; -LIDOCAINE 1% MDV 20ML VIAL As Ordered ONE
== END ==
LOC: M LABSMTC 09:09
PROVIDERS: ATTEND Anesthesiology
DX: Z01.818 Encounter for other preprocedural examination (principal); Z11.52 Encounter for screening for COVID-19

== ENCOUNTER → 2022-09-10 | Outpatient (CLI) | payer MEDICARE ==
[~2022-09-10] MED LIST changes: +LIDOCAINE 1% MDV 20ML VIAL As Ordered ONE; +MIDAZOLAM INJ 2MG/2ML VIAL As Ordered ONE; +NS 1,000 ML IV SCH; +ceFAZolin 2 GM/D5W 50 ML IV BAG As Ordered ONE; +ceFAZolin SOD 2 GM in IV 1 EA IV ONE; +diphenhydrAMINE 50MG/ML VIAL As Ordered ONE; +fentaNYL 100 MCG/2 ML INJECTION As Ordered ONE
[2022-09-10 17:15] VITALS: BP 148/66
== END ==
LOC: M IRPRO 12:50
PROVIDERS: ATTEND Specialist
DX: C34.90 Malignant neoplasm of unspecified part of unspecified bronchus or lung (principal)
CPT/HCPCS: 36561; 99152; 99153; C1769; C1788; C1894; J0690; J2250; J3010

== ENCOUNTER → 2022-09-18 | Outpatient (CLI) | payer MEDICARE ==
[~2022-09-18] MED LIST changes: -LIDOCAINE 1% MDV 20ML VIAL As Ordered ONE; -MIDAZOLAM INJ 2MG/2ML VIAL As Ordered ONE; -NS 1,000 ML IV SCH; +PROHANCE 279.3MG/ML 15ML VIAL As Ordered ONE; +PROHANCE 279.3MG/ML 5ML VIAL As Ordered ONE; -ceFAZolin 2 GM/D5W 50 ML IV BAG As Ordered ONE; -ceFAZolin SOD 2 GM in IV 1 EA IV ONE; -diphenhydrAMINE 50MG/ML VIAL As Ordered ONE; -fentaNYL 100 MCG/2 ML INJECTION As Ordered ONE
== END ==
LOC: M RAD 12:33
PROVIDERS: ATTEND General Practice
DX: C34.12 Malignant neoplasm of upper lobe, left bronchus or lung (principal)
CPT/HCPCS: 70553; A9576

== ENCOUNTER → 2022-09-18 | Outpatient (CLI) | payer MEDICARE ==
[~2022-09-18] MED LIST changes: -PROHANCE 279.3MG/ML 15ML VIAL As Ordered ONE; -PROHANCE 279.3MG/ML 5ML VIAL As Ordered ONE
== END ==
LOC: M ONCR 14:42
PROVIDERS: ATTEND General Practice
DX: C34.12 Malignant neoplasm of upper lobe, left bronchus or lung (principal); D32.9 Benign neoplasm of meninges, unspecified; F17.218 Nicotine dependence, cigarettes, with other nicotine-induced disorders; Z79.82 Long term (current) use of aspirin; Z79.899 Other long term (current) drug therapy

== ENCOUNTER → 2022-10-01 | Outpatient (CLI) | payer MEDICARE ==
[2022-10-01 12:40] VITALS: BP 152/72
== END ==
LOC: M IRPRO 09:32
PROVIDERS: ATTEND General Practice
DX: C34.12 Malignant neoplasm of upper lobe, left bronchus or lung (principal)

== ENCOUNTER → 2022-10-09 | Outpatient (POV) | payer MEDICARE ==
[~2022-10-09] VITALS: Ht 172.7 cm; Wt 80.0 kg
[~2022-10-09] MED LIST changes: +DEXA4TA PO; +FOLI400T13 PO
[2022-10-09 15:15] VITALS: BP 134/73
== END ==
LOC: M IRPOV 15:07
PROVIDERS: ATTEND Radiology Diagnostic Radiology
DX: Z45.2 Encounter for adjustment and management of vascular access device (principal)

== ENCOUNTER 2022-10-14 13:25 | Inpatient (IN) | payer MEDICARE ==
[2022-10-14] VITALS (9 sets, daily range): BP systolic 119–135; BP diastolic 55–77; O2SAT 87–95
[~2022-10-14] VITALS: Ht 172.7 cm; Wt 85.0 kg
[~2022-10-14 13:25] MED LIST changes: -LOSA100T45 PO; +LOSA100T46 PO
[2022-10-14] MEDS ORDERED: IPRATROPIUM 0.02% SOLN 0.5MG 2.5ML NEB NEB ONE (13:40)
[2022-10-14] MEDS ORDERED: ALBUTEROL SULFATE 2.5MG/0.5ML INH NEB SOLN NEB ONE (13:40)
[2022-10-14 14:03] LABS: ABG BASE EXCESS -0.9 (-2.0-2.0); ABG HCO3 22.2 MMOL/L (22.0-26.0); ABG O2 SATURATION 97.3 % (95.0-99.0); ABG PARTIAL PRESSURE CO2 32.3 mmHg (35.0-45.0); ABG PARTIAL PRESSURE O2 94.9 mmHg (75.0-100.0); ABG STANDARD HCO3 23.7 MMOL/L. (22.0-26.0); ABG TOTAL CO2 23.2 MMOL/L (23.0-31.0); ABG pH (ARTERIAL) 7.455 UNITS (7.350-7.450)
[2022-10-14 14:16] LABS: BASO % 0.2 % (0.0-1.0); EOS # 0.1 10^3/uL (0.0-0.5); EOS % 0.8 % (0.0-3.0); HEMOGLOBIN 12.5 g/dl (13.5-17.5); LYMPH % 5.8 % (24.0-44.0); MEAN CORPUSCULAR HEMOGLOBIN 29.7 pg (27.0-33.0); MEAN CORPUSCULAR HGB CONC 31.3 g/dl (32.0-36.5); MONO # 0.2 10^3/uL (0.0-0.8); MONO % 1.1 % (2.0-8.0); NEUTROPHILS # 15.7 10^3/uL (1.5-8.5); NEUTROPHILS % 91.7 % (36.0-66.0); PLATELET COUNT, AUTOMATED 288 10^3/uL (150-450); RED BLOOD COUNT 4.21 10^6/uL (4.30-6.10); WHITE BLOOD COUNT 17.2 10^3/uL (4.0-10.0)
[2022-10-14 14:38] LABS: THYROXINE (T4) 11.8 UG/DL (4.5-10.9)
[2022-10-14] MEDS ORDERED: LevoFLOXacin IV 750 MG in IV 1 EA IV ONE (14:40)
[2022-10-14 14:50] LABS: ALBUMIN 2.8 G/DL (3.2-5.2); ALKALINE PHOSPHATASE 155 U/L (46-116); ALT/SGPT 16 U/L (7.0-40); AST/SGOT 13 U/L (<34); BILIRUBIN,DIRECT 0.3 MG/DL (<0.4); BILIRUBIN,TOTAL 0.6 MG/DL (0.3-1.2); BLOOD UREA NITROGEN 22 MG/DL (9-23); CALCIUM LEVEL 8.8 MG/DL (8.3-10.6); CARBON DIOXIDE LEVEL 27 MMOL/L (20-31); CHLORIDE LEVEL 105 MMOL/L (98-107); CREATININE FOR GFR 1.14 MG/DL (0.70-1.30); GLOMERULAR FILTRATION RATE > 60.0 (>42); GLUCOSE, FASTING 202 MG/DL (74-106); POTASSIUM SERUM 4.2 MMOL/L (3.5-5.1); SODIUM LEVEL 141 MMOL/L (136-145); TOTAL PROTEIN 6.6 G/DL (5.7-8.2)
[2022-10-14] MEDS ORDERED: MORPHINE 2 MG/ML 1ML VIAL IV ONE (15:15)
[2022-10-14] MEDS ORDERED: GLUCOSE 4GM CHEW TABLET PO PRN (17:05)
[2022-10-14] MEDS ORDERED: DEXTROSE 50% 50ML SYRINGE IV PRN (17:05)
[2022-10-14] MEDS ORDERED: GLUCAGON INJ 1MG VIAL SC PRN (17:05)
[2022-10-14 17:30] LABS: LDH LACTATE DEHYDROGENASE 274 U/L (120-246)
[2022-10-14 17:41] LABS: FREE T4 1.22 NG/DL (0.89-1.76)
[2022-10-14 17:52] LABS: PROTHROMBIN TIME 13.4 SECONDS (12.5-14.5)
[2022-10-14] MEDS ORDERED: LIDOCAINE 1% MDV 20ML VIAL SC ONE (18:00)
[2022-10-14 18:10] LABS: HEMOGLOBIN A1c 6.1 % (4.0-6.0)
[2022-10-14] MEDS ORDERED: METO1TAB7 PO (18:18)
[2022-10-14] MEDS ORDERED: HOME MED LIST COMPLETE! XX SCH (18:20)
[2022-10-14 19:11] LABS: PH BODY FLUID 7.254 UNITS (NOT ESTABLISHED); SOURCE, BODY FLUID pH PLEURAL
[2022-10-14 19:35] LABS: SOURCE, BODY FLUID ALBUMIN PLEURAL
[2022-10-14 19:40] LABS: SOURCE, BODY FLUID GLUCOSE PLEURAL; SOURCE, BODY FLUID TRIG PLEURAL; TRIGLYCERIDE, BODY FLUID 45 MG/DL (NOT ESTABLISHED)
[2022-10-14 19:41] LABS: LDH, BODY FLUID 643 U/L (NOT ESTABLISHED); SOURCE, BODY FLUID LDH PLEURAL
[2022-10-14 19:42] LABS: AMYLASE, BODY FLUID 28 U/L (NOT ESTABLISHED); CHOLESTEROL, BODY FLUID 56 MG/DL (NOT ESTABLISHED); SOURCE, BODY FLUID AMYLASE PLEURAL; SOURCE, BODY FLUID CHOL PLEURAL; SOURCE, BODY FLUID TOT PROTEIN PLEURAL; TOTAL PROTEIN, BODY FLUID 3.8 G/DL (NOT ESTABLISHED)
[2022-10-14 19:57] LABS: APPEARANCE, BODY FLUID TURBID (CLEAR); PLEURAL FL COLOR RED (COLORLESS); SOURCE, BODY FLUID PLEURAL
[2022-10-14] MEDS: INSULIN LISPRO (NovoLOG) PER UNIT SC SCH ×2 (19:57→21:00)
[2022-10-14] MEDS: IPRATROPIUM 0.5MG/ALBUTEROL 2.5MG INH SOL UD 3ML (DUONEB) NEB SCH (20:01)
[2022-10-14] MEDS: ENOXAPARIN 40MG/0.4ML SYRINGE (J1650 PER 10MG) SC SCH (20:54)
[2022-10-14] MEDS: methylPREDNISolone 125MG 2ML VIAL IV SCH (20:54)
[2022-10-15] VITALS (15 sets, daily range): BP systolic 107–124; BP diastolic 52–63; O2SAT 88–92
[2022-10-15 05:29] LABS: HEMATOCRIT 36.2 % (42.0-52.0); HEMOGLOBIN 11.7 g/dl (13.5-17.5); MEAN CORPUSCULAR HEMOGLOBIN 30.1 pg (27.0-33.0); MEAN CORPUSCULAR HGB CONC 32.3 g/dl (32.0-36.5); MEAN CORPUSCULAR VOLUME 93.1 fl (80.0-96.0); PLATELET COUNT, AUTOMATED 222 10^3/uL (150-450); RED BLOOD COUNT 3.89 10^6/uL (4.30-6.10); WHITE BLOOD COUNT 17.8 10^3/uL (4.0-10.0)
[2022-10-15] MEDS: methylPREDNISolone 125MG 2ML VIAL IV SCH ×2 (05:30→18:28)
[2022-10-15 05:59] LABS: BLOOD UREA NITROGEN 24 MG/DL (9-23); CALCIUM LEVEL 8.4 MG/DL (8.3-10.6); CARBON DIOXIDE LEVEL 23 MMOL/L (20-31); CHLORIDE LEVEL 108 MMOL/L (98-107); CREATININE FOR GFR 1.17 MG/DL (0.70-1.30); GLOMERULAR FILTRATION RATE > 60.0 (>42); GLUCOSE, FASTING 143 MG/DL (74-106); POTASSIUM SERUM 4.3 MMOL/L (3.5-5.1); SODIUM LEVEL 139 MMOL/L (136-145)
[2022-10-15] MEDS ORDERED: LevoFLOXacin 750 MG TABLET PO SCH (06:00)
[2022-10-15] MEDS: IPRATROPIUM 0.5MG/ALBUTEROL 2.5MG INH SOL UD 3ML (DUONEB) NEB SCH ×4 (07:26→18:56)
[2022-10-15] MEDS: INSULIN LISPRO (NovoLOG) PER UNIT SC SCH ×4 (08:17→20:00)
[2022-10-15] MEDS: ATORVASTATIN 20 MG TAB PO SCH (08:19)
[2022-10-15] MEDS: PIPERACILLIN/TAZOBACTAM SOD 3.375 GM in D5W MINI-BAG PLUS 50 ML IV SCH ×3 (08:19→20:56)
[2022-10-15] MEDS: PANTOPRAZOLE 40MG TAB (PROTONIX) PO SCH (08:20)
[2022-10-15] MEDS: FOLIC ACID 1MG TAB PO SCH (08:20)
[2022-10-15] MEDS: amLODIPine 5 MG TAB PO SCH (08:20)
[2022-10-15] MEDS ORDERED: VANCOMYCIN HCL 750 MG, VIAL MATE ADAPTER 1 EACH in D5W 250 ML IV SCH (09:00)
[2022-10-15] MEDS ORDERED: LOSARTAN 50MG TABLET PO SCH (09:00)
[2022-10-15] MEDS: MORPHINE 2 MG/ML 1ML VIAL IV PRN ×2 (10:42→21:02)
[2022-10-15] MEDS ORDERED: VANCOMYCIN HCL 1,000 MG, VIAL MATE ADAPTER 1 EACH in D5W 250 ML IV ONE (12:00)
[2022-10-15] MEDS: ENOXAPARIN 40MG/0.4ML SYRINGE (J1650 PER 10MG) SC SCH (20:56)
[2022-10-15] MEDS: METOPROLOL SUCC (TopROL XL) 50MG **XL** TAB PO SCH (20:56)
[2022-10-16] MEDS: PIPERACILLIN/TAZOBACTAM SOD 3.375 GM in D5W MINI-BAG PLUS 50 ML IV SCH ×4 (01:50→21:04)
[2022-10-16 04:07] VITALS: BP 109/56
[2022-10-16 04:37] LABS: BASO % 0.1 % (0.0-1.0); HEMATOCRIT 36.6 % (42.0-52.0); HEMOGLOBIN 11.6 g/dl (13.5-17.5); LYMPH % 3.6 % (24.0-44.0); MEAN CORPUSCULAR HEMOGLOBIN 29.3 pg (27.0-33.0); MEAN CORPUSCULAR HGB CONC 31.7 g/dl (32.0-36.5); MEAN CORPUSCULAR VOLUME 92.4 fl (80.0-96.0); MONO # 0.8 10^3/uL (0.0-0.8); MONO % 2.9 % (2.0-8.0); NEUTROPHILS % 92.7 % (36.0-66.0); PLATELET COUNT, AUTOMATED 270 10^3/uL (150-450); RED BLOOD COUNT 3.96 10^6/uL (4.30-6.10)
[2022-10-16 05:00] LABS: CALCIUM LEVEL 8.3 MG/DL (8.3-10.6); CREATININE FOR GFR 1.54 MG/DL (0.70-1.30); GLOMERULAR FILTRATION RATE 47.6 (>42); POTASSIUM SERUM 4.3 MMOL/L (3.5-5.1)
[2022-10-16] MEDS: methylPREDNISolone 125MG 2ML VIAL IV SCH (05:33)
[2022-10-16] MEDS: IPRATROPIUM 0.5MG/ALBUTEROL 2.5MG INH SOL UD 3ML (DUONEB) NEB SCH ×4 (07:29→18:57)
[2022-10-16] MEDS: MORPHINE 2 MG/ML 1ML VIAL IV PRN (07:43)
[2022-10-16 08:17] VITALS: BP 118/63
[2022-10-16] MEDS: amLODIPine 5 MG TAB PO SCH (09:00)
[2022-10-16] MEDS: FOLIC ACID 1MG TAB PO SCH (09:21)
[2022-10-16] MEDS: PANTOPRAZOLE 40MG TAB (PROTONIX) PO SCH (09:21)
[2022-10-16] MEDS: ATORVASTATIN 20 MG TAB PO SCH (09:21)
[2022-10-16] MEDS: INSULIN LISPRO (NovoLOG) PER UNIT SC SCH ×4 (09:23→21:00)
[2022-10-16 11:48] VITALS: BP 116/57
[2022-10-16 15:36] VITALS: BP 105/52
[2022-10-16 18:10] LABS: HEMATOCRIT 37.2 % (42.0-52.0); HEMOGLOBIN 12.1 g/dl (13.5-17.5); MEAN CORPUSCULAR HGB CONC 32.5 g/dl (32.0-36.5); MEAN CORPUSCULAR VOLUME 92.3 fl (80.0-96.0); PLATELET COUNT, AUTOMATED 273 10^3/uL (150-450); RED BLOOD COUNT 4.03 10^6/uL (4.30-6.10); WHITE BLOOD COUNT 28.2 10^3/uL (4.0-10.0)
[2022-10-16 19:57] VITALS: BP 126/58
[2022-10-16] MEDS: ENOXAPARIN 40MG/0.4ML SYRINGE (J1650 PER 10MG) SC SCH (21:04)
[2022-10-16] MEDS: METOPROLOL SUCC (TopROL XL) 50MG **XL** TAB PO SCH (21:05)
[2022-10-16] MEDS ORDERED: MOM 30ML SUSPENSION UDC PO PRN (21:05)
[2022-10-16] MEDS ORDERED: BISACODYL 10MG SUPP PR ONE (22:00)
[2022-10-17] VITALS (7 sets, daily range): BP systolic 119–136; BP diastolic 58–71
[2022-10-17] MEDS: PIPERACILLIN/TAZOBACTAM SOD 3.375 GM in D5W MINI-BAG PLUS 50 ML IV SCH ×2 (02:33→08:19)
[2022-10-17 05:19] LABS: BASO % 0.1 % (0.0-1.0); HEMATOCRIT 36.7 % (42.0-52.0); HEMOGLOBIN 11.8 g/dl (13.5-17.5); LYMPH % 9.4 % (24.0-44.0); MEAN CORPUSCULAR HEMOGLOBIN 29.4 pg (27.0-33.0); MEAN CORPUSCULAR HGB CONC 32.2 g/dl (32.0-36.5); MEAN CORPUSCULAR VOLUME 91.5 fl (80.0-96.0); MONO # 1.2 10^3/uL (0.0-0.8); MONO % 5.4 % (2.0-8.0); NEUTROPHILS # 18.2 10^3/uL (1.5-8.5); NEUTROPHILS % 84.2 % (36.0-66.0); PLATELET COUNT, AUTOMATED 247 10^3/uL (150-450); RED BLOOD COUNT 4.01 10^6/uL (4.30-6.10); WHITE BLOOD COUNT 21.6 10^3/uL (4.0-10.0)
[2022-10-17 05:47] LABS: ALBUMIN 2.2 G/DL (3.2-5.2); BILIRUBIN,TOTAL 0.4 MG/DL (0.3-1.2); CREATININE FOR GFR 1.39 MG/DL (0.70-1.30); GLOMERULAR FILTRATION RATE 53.6 (>42); POTASSIUM SERUM 4.1 MMOL/L (3.5-5.1)
[2022-10-17] MEDS: IPRATROPIUM 0.5MG/ALBUTEROL 2.5MG INH SOL UD 3ML (DUONEB) NEB SCH ×4 (07:08→19:17)
[2022-10-17] MEDS: methylPREDNISolone 125MG 2ML VIAL IV SCH (08:19)
[2022-10-17] MEDS: INSULIN LISPRO (NovoLOG) PER UNIT SC SCH ×4 (08:20→20:33)
[2022-10-17] MEDS: ATORVASTATIN 20 MG TAB PO SCH (08:20)
[2022-10-17] MEDS: FOLIC ACID 1MG TAB PO SCH (08:21)
[2022-10-17] MEDS: amLODIPine 5 MG TAB PO SCH (08:21)
[2022-10-17] MEDS: PANTOPRAZOLE 40MG TAB (PROTONIX) PO SCH (08:21)
[2022-10-17] MEDS ORDERED: ALTEPLASE 2MG/2ML VIAL INTRAPLEU ONE (11:00)
[2022-10-17 14:14] LABS: BODY FLUID CULTURE Not indicated. (.); LEGIONELLA ANTIGEN URINE Negative (Negative); ORGANISM ID Not indicated. (.); SPECIMEN SOURCE Urine (.); URINE STREP PNEUMONIAE ANTIGEN Negative (Negative)
[2022-10-17] MEDS: SODIUM CHLORIDE 0.9% INJ 10 ML SYR IV PRN (17:46)
[2022-10-17] MEDS: METOPROLOL SUCC (TopROL XL) 50MG **XL** TAB PO SCH (20:33)
[2022-10-17] MEDS: ENOXAPARIN 40MG/0.4ML SYRINGE (J1650 PER 10MG) SC SCH (20:33)
[2022-10-18] VITALS (21 sets, daily range): BP systolic 125–147; BP diastolic 63–80; O2SAT 89–98
[2022-10-18 06:08] LABS: BASO % 0.2 % (0.0-1.0); EOS % 0.1 % (0.0-3.0); HEMATOCRIT 38.5 % (42.0-52.0); HEMOGLOBIN 12.2 g/dl (13.5-17.5); LYMPH # 2.1 10^3/uL (1.5-5.0); LYMPH % 12.6 % (24.0-44.0); MEAN CORPUSCULAR HEMOGLOBIN 29.4 pg (27.0-33.0); MEAN CORPUSCULAR HGB CONC 31.7 g/dl (32.0-36.5); MEAN CORPUSCULAR VOLUME 92.8 fl (80.0-96.0); MONO % 5.9 % (2.0-8.0); NEUTROPHILS # 13.5 10^3/uL (1.5-8.5); PLATELET COUNT, AUTOMATED 257 10^3/uL (150-450); RED BLOOD COUNT 4.15 10^6/uL (4.30-6.10); WHITE BLOOD COUNT 16.9 10^3/uL (4.0-10.0)
[2022-10-18 06:29] LABS: ALBUMIN 2.2 G/DL (3.2-5.2); ALKALINE PHOSPHATASE 108 U/L (46-116); ALT/SGPT 37 U/L (7.0-40); AST/SGOT 22 U/L (<34); BILIRUBIN,TOTAL 0.5 MG/DL (0.3-1.2); BLOOD UREA NITROGEN 33 MG/DL (9-23); CALCIUM LEVEL 8.2 MG/DL (8.3-10.6); CARBON DIOXIDE LEVEL 28 MMOL/L (20-31); CHLORIDE LEVEL 109 MMOL/L (98-107); GLOMERULAR FILTRATION RATE > 60.0 (>42); GLUCOSE, FASTING 95 MG/DL (74-106); POTASSIUM SERUM 4.8 MMOL/L (3.5-5.1); SODIUM LEVEL 143 MMOL/L (136-145); TOTAL PROTEIN 4.9 G/DL (5.7-8.2)
[2022-10-18] MEDS: IPRATROPIUM 0.5MG/ALBUTEROL 2.5MG INH SOL UD 3ML (DUONEB) NEB SCH ×4 (07:08→19:51)
[2022-10-18] MEDS: INSULIN LISPRO (NovoLOG) PER UNIT SC SCH ×4 (07:30→21:00)
[2022-10-18] MEDS ORDERED: DORNASE INHALATION SOLN 1MG/ML 2.5 ML AMP INTRAPLEU ONE ×2 (07:45→09:00)
[2022-10-18] MEDS ORDERED: ALTEPLASE 2MG/2ML VIAL INTRAPLEU ONE ×2 (07:45→09:00)
[2022-10-18] MEDS: methylPREDNISolone 125MG 2ML VIAL IV SCH (08:22)
[2022-10-18] MEDS: SODIUM CHLORIDE 0.9% INJ 10 ML SYR IV SCH (08:24)
[2022-10-18] MEDS: FOLIC ACID 1MG TAB PO SCH (08:25)
[2022-10-18] MEDS: PANTOPRAZOLE 40MG TAB (PROTONIX) PO SCH (08:25)
[2022-10-18] MEDS: ATORVASTATIN 20 MG TAB PO SCH (08:25)
[2022-10-18] MEDS: amLODIPine 5 MG TAB PO SCH (08:25)
[2022-10-18] MEDS: ACETAMINOPHEN TAB 650MG DOSE (2X325MG) PO PRN (16:38)
[2022-10-18] MEDS: METOPROLOL SUCC (TopROL XL) 50MG **XL** TAB PO SCH (21:47)
[2022-10-18] MEDS: ENOXAPARIN 40MG/0.4ML SYRINGE (J1650 PER 10MG) SC SCH (21:48)
[2022-10-19] VITALS (28 sets, daily range): BP systolic 135–149; BP diastolic 65–75; O2SAT 93–99
[2022-10-19 06:09] LABS: BASO # 0.1 10^3/uL (0.0-0.2); BASO % 0.3 % (0.0-1.0); EOS # 0.1 10^3/uL (0.0-0.5); EOS % 0.3 % (0.0-3.0); HEMATOCRIT 39.4 % (42.0-52.0); HEMOGLOBIN 12.7 g/dl (13.5-17.5); LYMPH # 2.3 10^3/uL (1.5-5.0); LYMPH % 12.5 % (24.0-44.0); MEAN CORPUSCULAR HEMOGLOBIN 29.7 pg (27.0-33.0); MEAN CORPUSCULAR HGB CONC 32.2 g/dl (32.0-36.5); MEAN CORPUSCULAR VOLUME 92.3 fl (80.0-96.0); MONO # 1.1 10^3/uL (0.0-0.8); MONO % 5.9 % (2.0-8.0); NEUTROPHILS # 14.2 10^3/uL (1.5-8.5); NEUTROPHILS % 78.1 % (36.0-66.0); PLATELET COUNT, AUTOMATED 256 10^3/uL (150-450); RED BLOOD COUNT 4.27 10^6/uL (4.30-6.10); WHITE BLOOD COUNT 18.2 10^3/uL (4.0-10.0)
[2022-10-19 06:41] LABS: ALBUMIN 2.3 G/DL (3.2-5.2); ALKALINE PHOSPHATASE 119 U/L (46-116); ALT/SGPT 48 U/L (7.0-40); AST/SGOT 30 U/L (<34); BILIRUBIN,TOTAL 0.4 MG/DL (0.3-1.2); BLOOD UREA NITROGEN 31 MG/DL (9-23); CALCIUM LEVEL 8.3 MG/DL (8.3-10.6); CARBON DIOXIDE LEVEL 27 MMOL/L (20-31); CHLORIDE LEVEL 110 MMOL/L (98-107); CREATININE FOR GFR 0.95 MG/DL (0.70-1.30); GLOMERULAR FILTRATION RATE > 60.0 (>42); GLUCOSE, FASTING 92 MG/DL (74-106); POTASSIUM SERUM 4.5 MMOL/L (3.5-5.1); SODIUM LEVEL 142 MMOL/L (136-145); TOTAL PROTEIN 5.2 G/DL (5.7-8.2)
[2022-10-19] MEDS: IPRATROPIUM 0.5MG/ALBUTEROL 2.5MG INH SOL UD 3ML (DUONEB) NEB SCH ×4 (07:14→19:09)
[2022-10-19] MEDS: INSULIN LISPRO (NovoLOG) PER UNIT SC SCH ×4 (07:18→21:00)
[2022-10-19] MEDS: PANTOPRAZOLE 40MG TAB (PROTONIX) PO SCH (08:28)
[2022-10-19] MEDS: FOLIC ACID 1MG TAB PO SCH (08:29)
[2022-10-19] MEDS: amLODIPine 5 MG TAB PO SCH (08:29)
[2022-10-19] MEDS: ATORVASTATIN 20 MG TAB PO SCH (08:29)
[2022-10-19] MEDS: predniSONE 20 MG TAB PO SCH (08:29)
[2022-10-19] MEDS: SODIUM CHLORIDE 0.9% INJ 10 ML SYR IV SCH (08:30)
[2022-10-19] MEDS: ACETAMINOPHEN TAB 650MG DOSE (2X325MG) PO PRN (16:28)
[2022-10-19] MEDS: METOPROLOL SUCC (TopROL XL) 50MG **XL** TAB PO SCH (21:40)
[2022-10-19] MEDS: ENOXAPARIN 40MG/0.4ML SYRINGE (J1650 PER 10MG) SC SCH (21:41)
[2022-10-20] VITALS (27 sets, daily range): BP systolic 120–136; BP diastolic 62–70; O2SAT 91–99
[2022-10-20 05:50] LABS: BASO # 0.1 10^3/uL (0.0-0.2); BASO % 0.3 % (0.0-1.0); EOS # 0.1 10^3/uL (0.0-0.5); EOS % 0.7 % (0.0-3.0); HEMOGLOBIN 12.3 g/dl (13.5-17.5); LYMPH # 2.6 10^3/uL (1.5-5.0); LYMPH % 14.1 % (24.0-44.0); MEAN CORPUSCULAR HEMOGLOBIN 29.6 pg (27.0-33.0); MEAN CORPUSCULAR HGB CONC 31.5 g/dl (32.0-36.5); MONO % 5.6 % (2.0-8.0); NEUTROPHILS % 75.9 % (36.0-66.0); PLATELET COUNT, AUTOMATED 237 10^3/uL (150-450); RED BLOOD COUNT 4.15 10^6/uL (4.30-6.10); WHITE BLOOD COUNT 18.4 10^3/uL (4.0-10.0)
[2022-10-20 06:16] LABS: ALBUMIN 2.1 G/DL (3.2-5.2); ALKALINE PHOSPHATASE 125 U/L (46-116); ALT/SGPT 79 U/L (7.0-40); AST/SGOT 38 U/L (<34); BILIRUBIN,TOTAL 0.4 MG/DL (0.3-1.2); BLOOD UREA NITROGEN 27 MG/DL (9-23); CALCIUM LEVEL 7.8 MG/DL (8.3-10.6); CARBON DIOXIDE LEVEL 26 MMOL/L (20-31); CHLORIDE LEVEL 110 MMOL/L (98-107); CREATININE FOR GFR 0.98 MG/DL (0.70-1.30); GLOMERULAR FILTRATION RATE > 60.0 (>42); GLUCOSE, FASTING 97 MG/DL (74-106); POTASSIUM SERUM 4.3 MMOL/L (3.5-5.1); SODIUM LEVEL 144 MMOL/L (136-145); TOTAL PROTEIN 4.8 G/DL (5.7-8.2)
[2022-10-20] MEDS: IPRATROPIUM 0.5MG/ALBUTEROL 2.5MG INH SOL UD 3ML (DUONEB) NEB SCH ×3 (07:10→19:34)
[2022-10-20] MEDS: INSULIN LISPRO (NovoLOG) PER UNIT SC SCH ×4 (07:30→21:00)
[2022-10-20] MEDS: predniSONE 20 MG TAB PO SCH (08:08)
[2022-10-20] MEDS: ATORVASTATIN 20 MG TAB PO SCH (08:08)
[2022-10-20] MEDS: SODIUM CHLORIDE 0.9% INJ 10 ML SYR IV SCH (08:09)
[2022-10-20] MEDS: FOLIC ACID 1MG TAB PO SCH (08:09)
[2022-10-20] MEDS: PANTOPRAZOLE 40MG TAB (PROTONIX) PO SCH (08:09)
[2022-10-20] MEDS: amLODIPine 5 MG TAB PO SCH (08:09)
[2022-10-20] MEDS: METOPROLOL SUCC (TopROL XL) 50MG **XL** TAB PO SCH (21:09)
[2022-10-20] MEDS: ENOXAPARIN 40MG/0.4ML SYRINGE (J1650 PER 10MG) SC SCH (21:09)
[2022-10-21] VITALS (43 sets, daily range): BP systolic 116–146; BP diastolic 59–75; O2SAT 90–99
[2022-10-21 05:36] LABS: BASO # 0.1 10^3/uL (0.0-0.2); BASO % 0.3 % (0.0-1.0); EOS # 0.2 10^3/uL (0.0-0.5); EOS % 1.1 % (0.0-3.0); HEMATOCRIT 37.9 % (42.0-52.0); HEMOGLOBIN 11.9 g/dl (13.5-17.5); LYMPH # 2.8 10^3/uL (1.5-5.0); LYMPH % 14.2 % (24.0-44.0); MEAN CORPUSCULAR HEMOGLOBIN 29.5 pg (27.0-33.0); MEAN CORPUSCULAR HGB CONC 31.4 g/dl (32.0-36.5); MEAN CORPUSCULAR VOLUME 93.8 fl (80.0-96.0); MONO # 1.2 10^3/uL (0.0-0.8); NEUTROPHILS # 14.5 10^3/uL (1.5-8.5); NEUTROPHILS % 74.7 % (36.0-66.0); PLATELET COUNT, AUTOMATED 218 10^3/uL (150-450); RED BLOOD COUNT 4.04 10^6/uL (4.30-6.10); WHITE BLOOD COUNT 19.4 10^3/uL (4.0-10.0)
[2022-10-21 06:01] LABS: ALBUMIN 2.1 G/DL (3.2-5.2); ALKALINE PHOSPHATASE 128 U/L (46-116); ALT/SGPT 84 U/L (7.0-40); AST/SGOT 39 U/L (<34); BILIRUBIN,TOTAL 0.3 MG/DL (0.3-1.2); BLOOD UREA NITROGEN 26 MG/DL (9-23); CALCIUM LEVEL 7.8 MG/DL (8.3-10.6); CARBON DIOXIDE LEVEL 28 MMOL/L (20-31); CHLORIDE LEVEL 108 MMOL/L (98-107); CREATININE FOR GFR 1.01 MG/DL (0.70-1.30); GLOMERULAR FILTRATION RATE > 60.0 (>42); GLUCOSE, FASTING 97 MG/DL (74-106); POTASSIUM SERUM 4.4 MMOL/L (3.5-5.1); SODIUM LEVEL 143 MMOL/L (136-145); TOTAL PROTEIN 4.7 G/DL (5.7-8.2)
[2022-10-21] MEDS: IPRATROPIUM 0.5MG/ALBUTEROL 2.5MG INH SOL UD 3ML (DUONEB) NEB SCH (07:07)
[2022-10-21] MEDS: INSULIN LISPRO (NovoLOG) PER UNIT SC SCH ×4 (07:30→20:36)
[2022-10-21] MEDS: ATORVASTATIN 20 MG TAB PO SCH (09:20)
[2022-10-21] MEDS: PANTOPRAZOLE 40MG TAB (PROTONIX) PO SCH (09:20)
[2022-10-21] MEDS: amLODIPine 5 MG TAB PO SCH (09:21)
[2022-10-21] MEDS: FOLIC ACID 1MG TAB PO SCH (09:21)
[2022-10-21] MEDS: SODIUM CHLORIDE 0.9% INJ 10 ML SYR IV SCH (09:21)
[2022-10-21] MEDS ORDERED: ceFAZolin SOD 2 GM in IV 1 EA IV ONE (10:30)
[2022-10-21] MEDS ORDERED: MIDAZOLAM 5MG 5ML VIAL (FOR CHEST TUBE INSERTIONS) IV PRN (10:40)
[2022-10-21] MEDS ORDERED: flumazeniL 0.5MG/5ML VIAL IV PRN (10:40)
[2022-10-21] MEDS ORDERED: LIDOCAINE 1% MDV 20ML VIAL SC PRN (10:40)
[2022-10-21] MEDS: MORPHINE 2 MG/ML 1ML VIAL IV PRN (11:35)
[2022-10-21] MEDS ORDERED: ONDANSETRON 4MG 2ML VIAL IV PRN (11:40)
[2022-10-21] MEDS ORDERED: BISACODYL 10MG SUPP PR PRN (11:40)
[2022-10-21] MEDS ORDERED: PERCOCET 5MG/325MG TAB PO PRN ×2 (11:40)
[2022-10-21] MEDS ORDERED: IPRATROPIUM 0.5MG/ALBUTEROL 2.5MG INH SOL UD 3ML (DUONEB) NEB PRN (11:45)
[2022-10-21 11:57] LABS: LDH LACTATE DEHYDROGENASE 340 U/L (120-246)
[2022-10-21 12:13] LABS: PH BODY FLUID 7.587 UNITS (NOT ESTABLISHED); SOURCE, BODY FLUID pH PLEURAL
[2022-10-21 12:16] LABS: PLEURAL FL COLOR YELLOW (COLORLESS); SOURCE, BODY FLUID PLEURAL
[2022-10-21 12:17] LABS: APPEARANCE, BODY FLUID CLEAR (CLEAR)
[2022-10-21 12:44] LABS: SOURCE, BODY FLUID ALBUMIN PLEURAL
[2022-10-21] MEDS: KETOROLAC 30 MG/ML 1ML VIAL IV SCH ×3 (12:46→23:37)
[2022-10-21 12:49] LABS: SOURCE, BODY FLUID GLUCOSE PLEURAL; SOURCE, BODY FLUID TRIG PLEURAL; TRIGLYCERIDE, BODY FLUID 14.99999 MG/DL (NOT ESTABLISHED)
[2022-10-21 12:50] LABS: AMYLASE, BODY FLUID 51 U/L (NOT ESTABLISHED); LDH, BODY FLUID 586 U/L (NOT ESTABLISHED); SOURCE, BODY FLUID AMYLASE PLEURAL; SOURCE, BODY FLUID LDH PLEURAL
[2022-10-21 12:51] LABS: CHOLESTEROL, BODY FLUID < 25 MG/DL (NOT ESTABLISHED); SOURCE, BODY FLUID CHOL PLEURAL; SOURCE, BODY FLUID TOT PROTEIN PLEURAL; TOTAL PROTEIN, BODY FLUID < 2.0 G/DL (NOT ESTABLISHED)
[2022-10-21] MEDS: COLCHICINE 0.6 MG TABLET PO SCH (13:01)
[2022-10-21] MEDS: SODIUM CHLORIDE 0.9% INJ 10 ML SYR IV PRN (18:10)
[2022-10-21] MEDS ORDERED: ACET1TAB55 PO (19:41)
[2022-10-21] MEDS ORDERED: COLA100C5 PO (19:41)
[2022-10-21] MEDS ORDERED: MIRA3350 PO (19:41)
[2022-10-21] MEDS ORDERED: PERCOCET PO (19:41)
[2022-10-21] MEDS ORDERED: COLC0.6T47 PO (19:47)
[2022-10-21] MEDS: ENOXAPARIN 40MG/0.4ML SYRINGE (J1650 PER 10MG) SC SCH (20:29)
[2022-10-21] MEDS: METOPROLOL SUCC (TopROL XL) 50MG **XL** TAB PO SCH (20:30)
[2022-10-21] MEDS: DOCUSATE SODIUM 100MG CAPSULE PO SCH (20:30)
[2022-10-22] VITALS (15 sets, daily range): BP systolic 124–140; BP diastolic 58–68; O2SAT 92–96
[2022-10-22] MEDS: KETOROLAC 30 MG/ML 1ML VIAL IV SCH ×2 (05:24→12:00)
[2022-10-22 05:50] LABS: BASO # 0.1 10^3/uL (0.0-0.2); BASO % 0.3 % (0.0-1.0); EOS # 0.8 10^3/uL (0.0-0.5); EOS % 4.9 % (0.0-3.0); HEMOGLOBIN 12.6 g/dl (13.5-17.5); LYMPH # 2.3 10^3/uL (1.5-5.0); MEAN CORPUSCULAR HEMOGLOBIN 30.1 pg (27.0-33.0); MEAN CORPUSCULAR HGB CONC 32.3 g/dl (32.0-36.5); MEAN CORPUSCULAR VOLUME 93.1 fl (80.0-96.0); MONO % 6.2 % (2.0-8.0); NEUTROPHILS # 10.8 10^3/uL (1.5-8.5); NEUTROPHILS % 69.8 % (36.0-66.0); PLATELET COUNT, AUTOMATED 209 10^3/uL (150-450); RED BLOOD COUNT 4.19 10^6/uL (4.30-6.10); WHITE BLOOD COUNT 15.4 10^3/uL (4.0-10.0)
[2022-10-22 06:17] LABS: ALKALINE PHOSPHATASE 130 U/L (46-116); ALT/SGPT 61 U/L (7.0-40); AST/SGOT 24 U/L (<34); BILIRUBIN,TOTAL 0.4 MG/DL (0.3-1.2); BLOOD UREA NITROGEN 32 MG/DL (9-23); CALCIUM LEVEL 7.7 MG/DL (8.3-10.6); CARBON DIOXIDE LEVEL 27 MMOL/L (20-31); CHLORIDE LEVEL 108 MMOL/L (98-107); CREATININE FOR GFR 1.19 MG/DL (0.70-1.30); GLOMERULAR FILTRATION RATE > 60.0 (>42); GLUCOSE, FASTING 90 MG/DL (74-106); POTASSIUM SERUM 4.3 MMOL/L (3.5-5.1); SODIUM LEVEL 142 MMOL/L (136-145); TOTAL PROTEIN 4.5 G/DL (5.7-8.2)
[2022-10-22] MEDS: INSULIN LISPRO (NovoLOG) PER UNIT SC SCH ×2 (07:30→12:00)
[2022-10-22] MEDS: FOLIC ACID 1MG TAB PO SCH (08:40)
[2022-10-22] MEDS: ATORVASTATIN 20 MG TAB PO SCH (08:40)
[2022-10-22] MEDS: COLCHICINE 0.6 MG TABLET PO SCH (08:41)
[2022-10-22] MEDS: PANTOPRAZOLE 40MG TAB (PROTONIX) PO SCH (08:41)
[2022-10-22] MEDS: DOCUSATE SODIUM 100MG CAPSULE PO SCH (08:42)
[2022-10-22] MEDS: SODIUM CHLORIDE 0.9% INJ 10 ML SYR IV SCH (08:42)
[2022-10-22] MEDS: amLODIPine 5 MG TAB PO SCH (08:46)
== END 2022-10-22 14:46 | disposition home health service (06) | DRG 180 ==
LOC: EDBD 13:25 → M ED 13:25 → M ED INP 16:48 → M PCU 18:30
PROVIDERS: ADMIT Internal Medicine; ATTEND Internal Medicine
PROC: 0W9B30Z Drainage of Left Pleural Cavity with Drainage Device, Percutaneous Approach (ICD-10-PCS; principal; 2022-10-14)
PROC: B246ZZZ Ultrasonography of Right and Left Heart (ICD-10-PCS; 2022-10-20)
PROC: 0W9B30Z Drainage of Left Pleural Cavity with Drainage Device, Percutaneous Approach (ICD-10-PCS; 2022-10-21)
DX: C34.12 Malignant neoplasm of upper lobe, left bronchus or lung (principal); J96.01 Acute respiratory failure with hypoxia; J91.0 Malignant pleural effusion; E87.20 Acidosis, unspecified; J44.1 Chronic obstructive pulmonary disease with (acute) exacerbation; N17.9 Acute kidney failure, unspecified; I31.39 Other pericardial effusion (noninflammatory); I25.10 Atherosclerotic heart disease of native coronary artery without angina pectoris; I10 Essential (primary) hypertension; E78.5 Hyperlipidemia, unspecified; R73.03 Prediabetes; K21.9 Gastro-esophageal reflux disease without esophagitis; Z87.891 Personal history of nicotine dependence; Z79.899 Other long term (current) drug therapy; Z95.5 Presence of coronary angioplasty implant and graft

== ENCOUNTER → 2022-11-02 | Outpatient (CLI) | payer MEDICARE ==
[~2022-11-02] MED LIST changes: +ACET1TAB55 PO; +COLA100C5 PO; +COLC0.6T47 PO; +METO1TAB7 PO; +MIRA3350 PO; +ONDA-84 PO; +PERCOCET PO; +PROC10TA5 PO
== END ==
LOC: M RAD 08:46
PROVIDERS: ATTEND Thoracic Surgery (Cardiothoracic Vascular Surgery)
DX: C34.12 Malignant neoplasm of upper lobe, left bronchus or lung (principal)

== ENCOUNTER → 2022-11-07 | Outpatient (CLI) | payer MEDICARE | LOC: M RAD 14:09 | PROVIDERS: ATTEND Thoracic Surgery (Cardiothoracic Vascular Surgery) | DX: C34.12 Malignant neoplasm of upper lobe, left bronchus or lung (principal); J91.0 Malignant pleural effusion ==

== ENCOUNTER 2022-11-26 16:09 | Outpatient (CLI) | payer MEDICARE ==
[~2022-11-26] VITALS: Ht 172.7 cm; Wt 72.7 kg
[~2022-11-26 16:09] MED LIST changes: +AMOX500C PO; +CEPH500C PO; +DOCU100C16 PO; +FIDA200TA PO; +HYDR-3713 PO; +OXYC1TAB23 PO; +POLY510P14 PO; +VANC1CAP6 PO
[2022-11-26 16:10] VITALS: BP 133/77; O2SAT 99
[2022-11-26] MEDS ORDERED: BEZLOTOXUMAB 700 MG in NS 100 ML IV ONE (16:30)
[2022-11-26] MEDS ORDERED: SODIUM CHLORIDE 0.9% INJ 10 ML SYR IV PRN (16:45)
[2022-11-26 17:34] LABS: HEMATOCRIT 35.9 % (42.0-52.0); HEMOGLOBIN 11.3 g/dl (13.5-17.5); MEAN CORPUSCULAR HEMOGLOBIN 29.4 pg (27.0-33.0); MEAN CORPUSCULAR HGB CONC 31.5 g/dl (32.0-36.5); MEAN CORPUSCULAR VOLUME 93.2 fl (80.0-96.0); RED BLOOD COUNT 3.85 10^6/uL (4.30-6.10); WHITE BLOOD COUNT 2.1 10^3/uL (4.0-10.0)
[2022-11-26 17:38] LABS: PLATELET COUNT, AUTOMATED 74 10^3/uL (150-450)
[2022-11-26 18:12] VITALS: BP 135/75; O2SAT 100
[2022-11-26 19:05] LABS: ATYPICAL LYMPH 5 % (0-5); BASOPHILS 2 % (0-1); EOSINOPHILS 7 % (0-3); LYMPHOCYTES 69 % (16-44); MONOCYTES 3 % (0-5); NEUTROPHILS 14 % (28-66); PLATELET ESTIMATE DECREASED (NORMAL)
== END 2022-11-26 18:13 | disposition home or self-care (01) ==
LOC: M INFU 16:09
PROVIDERS: ATTEND Internal Medicine
DX: A04.72 Enterocolitis due to Clostridium difficile, not specified as recurrent (principal)
CPT/HCPCS: 36592; 85025; 85049; 85055; 96365; 96523; J0565

== ENCOUNTER 2022-12-13 14:56 | Inpatient (IN) | payer MEDICARE ==
[~2022-12-13] VITALS: Ht 172.7 cm; Wt 73.2 kg
[2022-12-13 15:53] LABS: VENOUS BASE EXCESS 0.1 (-2.0-2.0); VENOUS HCO3 26.2 MMOL/L (23.0-27.0); VENOUS O2 SATURATION 45.8 % (60.0-80.0); VENOUS PARTIAL PRESSURE CO2 48.3 mmHg (38.0-50.0); VENOUS PARTIAL PRESSURE O2 27.6 mmHg (30.0-50.0); VENOUS PH 7.353 UNITS (7.330-7.430); VENOUS STANDARD HCO3 23.4 MMOL/L; VENOUS TOTAL CO2 27.7 MMOL/L (24.0-28.0)
[2022-12-13 15:58] LABS: ALBUMIN 2.9 G/DL (3.2-5.2); ALKALINE PHOSPHATASE 206 U/L (46-116); ALT/SGPT 20 U/L (7.0-40); AST/SGOT < 8 U/L (<34); BILIRUBIN,DIRECT < 0.1 MG/DL (<0.4); BILIRUBIN,TOTAL 0.4 MG/DL (0.3-1.2); BLOOD UREA NITROGEN 31 MG/DL (9-23); CARBON DIOXIDE LEVEL 27 MMOL/L (20-31); CHLORIDE LEVEL 103 MMOL/L (98-107); CREATININE FOR GFR 1.79 MG/DL (0.70-1.30); GLOMERULAR FILTRATION RATE 40.1 (>42); GLUCOSE, FASTING 107 MG/DL (74-106); POTASSIUM SERUM 4.9 MMOL/L (3.5-5.1); SODIUM LEVEL 139 MMOL/L (136-145)
[2022-12-13 15:59] LABS: HEMATOCRIT 31.6 % (42.0-52.0); MEAN CORPUSCULAR HGB CONC 31.6 g/dl (32.0-36.5); MEAN CORPUSCULAR VOLUME 94.9 fl (80.0-96.0); PLATELET COUNT, AUTOMATED 202 10^3/uL (150-450); RED BLOOD COUNT 3.33 10^6/uL (4.30-6.10); WHITE BLOOD COUNT 11.2 10^3/uL (4.0-10.0)
[2022-12-13 16:01] LABS: THYROID STIMULATING HORMONE 1.195 uIU/ML (0.55-4.78)
[2022-12-13 16:40] LABS: ATYPICAL LYMPH 2 % (0-5); BASOPHILS 1 % (0-1); EOSINOPHILS 3 % (0-3); LYMPHOCYTES 16 % (16-44); METAMYELOCYTES 1 % (0-0); MONOCYTES 12 % (0-5); NEUTROPHILS 65 % (28-66)
[2022-12-13 16:42] LABS: ANISOCYTOSIS 2+; PLATELET ESTIMATE NORMAL (NORMAL)
[2022-12-13 16:50] LABS: CPK CREATINE PHOSPHOKINASE 40 U/L (46-171)
[2022-12-13 16:58] LABS: CK-MB VALUE MASS < 1.0 NG/ML (<3.6)
[2022-12-13 17:02] LABS: CPK CREATINE PHOSPHOKINASE 37 U/L (46-171)
[2022-12-13] MEDS ORDERED: methylPREDNISolone 125MG 2ML VIAL IV ONE (17:50)
[2022-12-13] MEDS ORDERED: MED REC IN PROGRESS XX SCH (19:10)
[2022-12-13] MEDS ORDERED: ACETAMINOPHEN TAB 650MG DOSE (2X325MG) PO PRN (19:20)
[2022-12-13] MEDS ORDERED: NS 250 ML IV ONE (19:20)
[2022-12-13] MEDS ORDERED: HOME MED LIST COMPLETE! XX SCH (20:10)
[2022-12-13] MEDS ORDERED: ALBUTEROL 90 MCG/ACT 8GM HFA INHALER INH PRN (21:10)
[2022-12-13] MEDS: AZITHROMYCIN 250MG TABLET PO SCH (21:24)
[2022-12-13] MEDS: ATORVASTATIN 20 MG TAB PO SCH (21:25)
[2022-12-13 21:30] VITALS: BP 144/96; TEMP 97.2; O2SAT 95
[2022-12-13] MEDS: BUDESONIDE 180MCG INHALER (PULMICORT FLEXHALER) INH SCH (22:25)
[2022-12-13] MEDS ORDERED: NS 500 ML IV ONE (22:25)
[2022-12-13] MEDS ORDERED: NS 1,000 ML IV SCH (22:25)
[2022-12-13] MEDS: cefTRIAXone SOD 1 GM in D5W MINI-BAG PLUS 50 ML IV SCH (22:48)
[2022-12-14] VITALS (14 sets, daily range): BP systolic 136–167; BP diastolic 79–98; TEMP 96.2–97.9; O2SAT 95–100
[2022-12-14] MEDS ORDERED: methylPREDNISolone 40MG 1ML VIAL IV SCH (02:00)
[2022-12-14] MEDS: LEVALBUTEROL HFA 45MCG/ACT 15GM INHALER INH SCH ×4 (02:32→20:15)
[2022-12-14 05:52] LABS: VENOUS BASE EXCESS -2.1 (-2.0-2.0); VENOUS HCO3 22.7 MMOL/L (23.0-27.0); VENOUS O2 SATURATION 96.5 % (60.0-80.0); VENOUS PARTIAL PRESSURE CO2 38.7 mmHg (38.0-50.0); VENOUS PARTIAL PRESSURE O2 94.6 mmHg (30.0-50.0); VENOUS PH 7.386 UNITS (7.330-7.430); VENOUS STANDARD HCO3 22.7 MMOL/L; VENOUS TOTAL CO2 23.9 MMOL/L (24.0-28.0)
[2022-12-14 06:05] LABS: HEMATOCRIT 26.3 % (42.0-52.0); HEMOGLOBIN 8.3 g/dl (13.5-17.5); MEAN CORPUSCULAR HEMOGLOBIN 29.7 pg (27.0-33.0); MEAN CORPUSCULAR HGB CONC 31.6 g/dl (32.0-36.5); MEAN CORPUSCULAR VOLUME 94.3 fl (80.0-96.0); PLATELET COUNT, AUTOMATED 173 10^3/uL (150-450); RED BLOOD COUNT 2.79 10^6/uL (4.30-6.10); WHITE BLOOD COUNT 9.2 10^3/uL (4.0-10.0)
[2022-12-14 06:28] LABS: ALBUMIN 2.3 G/DL (3.2-5.2); BILIRUBIN,TOTAL 0.3 MG/DL (0.3-1.2); CREATININE FOR GFR 1.79 MG/DL (0.70-1.30); GLOMERULAR FILTRATION RATE 40.1 (>42); MAGNESIUM LEVEL 1.1 MG/DL (1.8-2.4); POTASSIUM SERUM 5.3 MMOL/L (3.5-5.1)
[2022-12-14] MEDS: BUDESONIDE 180MCG INHALER (PULMICORT FLEXHALER) INH SCH ×2 (07:51→20:15)
[2022-12-14] MEDS: NS 1,000 ML IV SCH ×2 (08:50→20:15)
[2022-12-14] MEDS ORDERED: predniSONE 20 MG TAB PO SCH (09:00)
[2022-12-14] MEDS ORDERED: HEPARIN SOD (PORCINE) 5000UNITS/ML 1ML VIAL/SYRINGE SC SCH (09:00)
[2022-12-14 09:03] LABS: PERCENT SATURATION 26.7 % (19.7-50.0)
[2022-12-14 09:07] LABS: FERRITIN 637.9 NG/ML (10.5-307.3)
[2022-12-14] MEDS: AZITHROMYCIN 250MG TABLET PO SCH (10:33)
[2022-12-14] MEDS: COLCHICINE 0.6 MG TABLET PO SCH (10:33)
[2022-12-14] MEDS: PANTOPRAZOLE 40MG TAB (PROTONIX) PO SCH (10:33)
[2022-12-14] MEDS ORDERED: NS 500 ML IV ONE (11:20)
[2022-12-14 11:23] LABS: FOLATE 17.3 NG/ML (>5.4)
[2022-12-14 11:27] LABS: PROCALCITONIN 0.25 ng/ml
[2022-12-14 11:38] LABS: C REACTIVE PROTEIN QUANTITATIV 1.5 MG/DL (<1.0)
[2022-12-14] MEDS: LACTOBACILLUS ACIDOPHILUS CAP (BACID) PO SCH ×3 (13:07→20:02)
[2022-12-14] MEDS: methylPREDNISolone 40MG 1ML VIAL IV SCH (13:07)
[2022-12-14] MEDS ORDERED: ALTEPLASE 2MG/2ML VIAL XX ONE (14:50)
[2022-12-14 16:16] LABS: CALCIUM LEVEL 7.8 MG/DL (8.3-10.6); CREATININE FOR GFR 1.63 MG/DL (0.70-1.30); GLOMERULAR FILTRATION RATE 44.6 (>42); POTASSIUM SERUM 4.4 MMOL/L (3.5-5.1)
[2022-12-14] MEDS ORDERED: HEPARIN SOD (PORCINE) 5000UNITS/ML 1ML VIAL/SYRINGE IV ONE (17:30)
[2022-12-14] MEDS ORDERED: HEPARIN SOD (PORCINE) 5000UNITS/ML 1ML VIAL/SYRINGE IV PRN (17:30)
[2022-12-14] MEDS: MAG SULF 1GM/100ML (MAG RUN) 1 GM in IV 1 EA IV SCH ×4 (17:50→23:27)
[2022-12-14] MEDS: amLODIPine 5 MG TAB PO SCH (18:51)
[2022-12-14] MEDS: ATORVASTATIN 20 MG TAB PO SCH (20:02)
[2022-12-14] MEDS: HEPARIN DRIP 25,000 UNITS in IV 1 EA IV SCH (21:23)
[2022-12-15] VITALS (7 sets, daily range): BP systolic 132–165; BP diastolic 76–92; TEMP 96.4–98; O2SAT 92–99
[2022-12-15 00:12] LABS: HEMATOCRIT 33.8 % (42.0-52.0); MEAN CORPUSCULAR HEMOGLOBIN 30.5 pg (27.0-33.0); MEAN CORPUSCULAR HGB CONC 32.8 g/dl (32.0-36.5); MEAN CORPUSCULAR VOLUME 92.9 fl (80.0-96.0); PLATELET COUNT, AUTOMATED 160 10^3/uL (150-450); RED BLOOD COUNT 3.64 10^6/uL (4.30-6.10); WHITE BLOOD COUNT 21.1 10^3/uL (4.0-10.0)
[2022-12-15] MEDS: cefTRIAXone SOD 1 GM in D5W MINI-BAG PLUS 50 ML IV SCH (00:34)
[2022-12-15 01:03] LABS: HEMOGLOBIN 11.1 g/dl (13.5-17.5)
[2022-12-15] MEDS: methylPREDNISolone 40MG 1ML VIAL IV SCH (02:15)
[2022-12-15] MEDS: LEVALBUTEROL HFA 45MCG/ACT 15GM INHALER INH SCH ×4 (02:24→20:12)
[2022-12-15 03:42] LABS: BASO % 0.1 % (0.0-1.0); HEMATOCRIT 33.6 % (42.0-52.0); HEMOGLOBIN 11.1 g/dl (13.5-17.5); LYMPH # 1.6 10^3/uL (1.5-5.0); LYMPH % 7.8 % (24.0-44.0); MEAN CORPUSCULAR HEMOGLOBIN 30.8 pg (27.0-33.0); MEAN CORPUSCULAR VOLUME 93.3 fl (80.0-96.0); MONO % 9.5 % (2.0-8.0); NEUTROPHILS # 16.9 10^3/uL (1.5-8.5); NEUTROPHILS % 80.8 % (36.0-66.0); PLATELET COUNT, AUTOMATED 156 10^3/uL (150-450); WHITE BLOOD COUNT 20.9 10^3/uL (4.0-10.0)
[2022-12-15 03:50] LABS: C REACTIVE PROTEIN QUANTITATIV 0.6 MG/DL (<1.0)
[2022-12-15 03:52] LABS: ALBUMIN 2.3 G/DL (3.2-5.2); BILIRUBIN,TOTAL 0.4 MG/DL (0.3-1.2); CALCIUM LEVEL 8.8 MG/DL (8.3-10.6); CREATININE FOR GFR 1.53 MG/DL (0.70-1.30); MAGNESIUM LEVEL 2.2 MG/DL (1.8-2.4); POTASSIUM SERUM 4.7 MMOL/L (3.5-5.1); TOTAL PROTEIN 6.2 G/DL (5.7-8.2)
[2022-12-15 03:52] LABS: INR 1.08; PROTHROMBIN TIME 14.2 SECONDS (12.5-14.5)
[2022-12-15] MEDS: NS 1,000 ML IV SCH ×3 (05:06→21:53)
[2022-12-15 05:11] LABS: PARTIAL THROMBOPLASTIN TIME > 240.0 SECONDS (24.8-34.2)
[2022-12-15] MEDS: BUDESONIDE 180MCG INHALER (PULMICORT FLEXHALER) INH SCH ×2 (08:00→20:40)
[2022-12-15] MEDS: PANTOPRAZOLE 40MG TAB (PROTONIX) PO SCH (08:56)
[2022-12-15] MEDS: COLCHICINE 0.6 MG TABLET PO SCH (08:56)
[2022-12-15] MEDS: amLODIPine 5 MG TAB PO SCH (08:56)
[2022-12-15] MEDS: LACTOBACILLUS ACIDOPHILUS CAP (BACID) PO SCH ×4 (08:56→20:40)
[2022-12-15] MEDS: AZITHROMYCIN 250MG TABLET PO SCH (08:56)
[2022-12-15] MEDS ORDERED: predniSONE 20 MG TAB PO SCH (09:00)
[2022-12-15 09:24] LABS: INR 0.99; PROTHROMBIN TIME 13.3 SECONDS (12.5-14.5)
[2022-12-15 09:25] LABS: PARTIAL THROMBOPLASTIN TIME 43.9 SECONDS (24.8-34.2)
[2022-12-15] MEDS: FERROUS SULFATE 300MG/5ML UDC LIQUID PO SCH ×2 (14:32→20:40)
[2022-12-15] MEDS ORDERED: MORPHINE 2 MG/ML 1ML VIAL IV PRN (15:45)
[2022-12-15] MEDS ORDERED: HYDROMORPHONE HCL 0.5 MG/ 0.5 ML SYRINGE IV PRN ×2 (16:15)
[2022-12-15 16:20] LABS: BASO % 0.2 % (0.0-1.0); HEMATOCRIT 35.9 % (42.0-52.0); HEMOGLOBIN 11.7 g/dl (13.5-17.5); LYMPH # 1.2 10^3/uL (1.5-5.0); MEAN CORPUSCULAR HEMOGLOBIN 30.6 pg (27.0-33.0); MEAN CORPUSCULAR HGB CONC 32.6 g/dl (32.0-36.5); MONO % 4.2 % (2.0-8.0); NEUTROPHILS # 20.9 10^3/uL (1.5-8.5); NEUTROPHILS % 88.2 % (36.0-66.0); PLATELET COUNT, AUTOMATED 161 10^3/uL (150-450); RED BLOOD COUNT 3.82 10^6/uL (4.30-6.10); WHITE BLOOD COUNT 23.7 10^3/uL (4.0-10.0)
[2022-12-15 16:58] LABS: ALBUMIN 2.5 G/DL (3.2-5.2); ALKALINE PHOSPHATASE 171 U/L (46-116); ALT/SGPT 23 U/L (7.0-40); AST/SGOT 21 U/L (<34); BILIRUBIN,TOTAL 0.3 MG/DL (0.3-1.2); BLOOD UREA NITROGEN 33 MG/DL (9-23); CALCIUM LEVEL 8.6 MG/DL (8.3-10.6); CARBON DIOXIDE LEVEL 20 MMOL/L (20-31); CHLORIDE LEVEL 108 MMOL/L (98-107); CK-MB VALUE MASS 1.7 NG/ML (<3.6); CPK CREATINE PHOSPHOKINASE 50 U/L (46-171); CREATININE FOR GFR 1.26 MG/DL (0.70-1.30); GLOMERULAR FILTRATION RATE > 60.0 (>42); GLUCOSE, FASTING 144 MG/DL (74-106); POTASSIUM SERUM 4.5 MMOL/L (3.5-5.1); SODIUM LEVEL 140 MMOL/L (136-145); TOTAL PROTEIN 6.6 G/DL (5.7-8.2)
[2022-12-15 18:36] LABS: CK-MB VALUE MASS 2.9 NG/ML (<3.6)
[2022-12-15 18:37] LABS: MB/CK RELATIVE INDEX 5.91 (< OR =4)
[2022-12-15] MEDS: HEPARIN DRIP 25,000 UNITS in IV 1 EA IV SCH ×3 (19:32→19:41)
[2022-12-15] MEDS: CEFDINIR 300 MG CAP (OMNICEF) PO SCH (20:41)
[2022-12-15] MEDS: ATORVASTATIN 20 MG TAB PO SCH (20:41)
[2022-12-16] VITALS (7 sets, daily range): BP systolic 142–160; BP diastolic 70–88; TEMP 96.1–98.1; O2SAT 94–99
[2022-12-16] MEDS: LEVALBUTEROL HFA 45MCG/ACT 15GM INHALER INH SCH ×4 (01:35→19:36)
[2022-12-16 02:48] LABS: HEMATOCRIT 33.9 % (42.0-52.0)
[2022-12-16] MEDS: NS 1,000 ML IV SCH (05:25)
[2022-12-16 06:40] LABS: BASO # 0.1 10^3/uL (0.0-0.2); BASO % 0.3 % (0.0-1.0); EOS % 0.1 % (0.0-3.0); HEMATOCRIT 31.2 % (42.0-52.0); HEMOGLOBIN 10.3 g/dl (13.5-17.5); LYMPH # 1.8 10^3/uL (1.5-5.0); LYMPH % 9.8 % (24.0-44.0); MEAN CORPUSCULAR HEMOGLOBIN 31.6 pg (27.0-33.0); MEAN CORPUSCULAR VOLUME 95.7 fl (80.0-96.0); MONO # 1.5 10^3/uL (0.0-0.8); MONO % 7.8 % (2.0-8.0); NEUTROPHILS # 14.6 10^3/uL (1.5-8.5); NEUTROPHILS % 78.9 % (36.0-66.0); PLATELET COUNT, AUTOMATED 145 10^3/uL (150-450); RED BLOOD COUNT 3.26 10^6/uL (4.30-6.10); WHITE BLOOD COUNT 18.5 10^3/uL (4.0-10.0)
[2022-12-16 07:20] LABS: C REACTIVE PROTEIN QUANTITATIV < 0.40 MG/DL (<1.0)
[2022-12-16 07:22] LABS: ALBUMIN 2.2 G/DL (3.2-5.2); ALKALINE PHOSPHATASE 147 U/L (46-116); ALT/SGPT 22 U/L (7.0-40); AST/SGOT 21 U/L (<34); BILIRUBIN,TOTAL 0.3 MG/DL (0.3-1.2); BLOOD UREA NITROGEN 30 MG/DL (9-23); CALCIUM LEVEL 7.5 MG/DL (8.3-10.6); CARBON DIOXIDE LEVEL 21 MMOL/L (20-31); CHLORIDE LEVEL 112 MMOL/L (98-107); CREATININE FOR GFR 1.23 MG/DL (0.70-1.30); GLOMERULAR FILTRATION RATE > 60.0 (>42); GLUCOSE, FASTING 96 MG/DL (74-106); MAGNESIUM LEVEL 1.6 MG/DL (1.8-2.4); POTASSIUM SERUM 4.5 MMOL/L (3.5-5.1); SODIUM LEVEL 142 MMOL/L (136-145); TOTAL PROTEIN 5.2 G/DL (5.7-8.2)
[2022-12-16] MEDS: BUDESONIDE 180MCG INHALER (PULMICORT FLEXHALER) INH SCH ×2 (07:31→19:36)
[2022-12-16 07:58] LABS: LIPASE 43 U/L (12-53)
[2022-12-16 08:00] LABS: AMYLASE 21 U/L (30-118)
[2022-12-16] MEDS: FERROUS SULFATE 300MG/5ML UDC LIQUID PO SCH ×2 (08:27→20:17)
[2022-12-16] MEDS: amLODIPine 5 MG TAB PO SCH (08:27)
[2022-12-16] MEDS: PANTOPRAZOLE 40MG TAB (PROTONIX) PO SCH (08:27)
[2022-12-16] MEDS: COLCHICINE 0.6 MG TABLET PO SCH (08:27)
[2022-12-16] MEDS: CEFDINIR 300 MG CAP (OMNICEF) PO SCH ×2 (08:27→20:17)
[2022-12-16] MEDS: LACTOBACILLUS ACIDOPHILUS CAP (BACID) PO SCH ×4 (08:27→20:16)
[2022-12-16] MEDS: MAG SULF 1GM/100ML (MAG RUN) 1 GM in IV 1 EA IV SCH ×2 (09:24→10:42)
[2022-12-16 13:13] LABS: HEMATOCRIT 32.4 % (42.0-52.0); HEMOGLOBIN 10.7 g/dl (13.5-17.5)
[2022-12-16 18:27] LABS: HEMATOCRIT 36.7 % (42.0-52.0)
[2022-12-16] MEDS: APIXABAN 5 MG TAB (ELIQUIS) PO SCH (20:16)
[2022-12-16] MEDS: ATORVASTATIN 20 MG TAB PO SCH (20:17)
[2022-12-17] VITALS (11 sets, daily range): BP systolic 140–162; BP diastolic 84–91; TEMP 97.7–98.3; O2SAT 94–97
[2022-12-17 00:54] LABS: HEMATOCRIT 32.2 % (42.0-52.0); HEMOGLOBIN 10.8 g/dl (13.5-17.5)
[2022-12-17] MEDS: LEVALBUTEROL HFA 45MCG/ACT 15GM INHALER INH SCH ×3 (01:34→13:18)
[2022-12-17 05:48] LABS: HEMATOCRIT 33.1 % (42.0-52.0); HEMOGLOBIN 10.9 g/dl (13.5-17.5); MEAN CORPUSCULAR HEMOGLOBIN 31.1 pg (27.0-33.0); MEAN CORPUSCULAR HGB CONC 32.9 g/dl (32.0-36.5); MEAN CORPUSCULAR VOLUME 94.6 fl (80.0-96.0); PLATELET COUNT, AUTOMATED 125 10^3/uL (150-450); WHITE BLOOD COUNT 11.8 10^3/uL (4.0-10.0)
[2022-12-17 06:03] LABS: C REACTIVE PROTEIN QUANTITATIV < 0.40 MG/DL (<1.0)
[2022-12-17 06:04] LABS: ALBUMIN 2.2 G/DL (3.2-5.2); ALKALINE PHOSPHATASE 167 U/L (46-116); ALT/SGPT 30 U/L (7.0-40); AST/SGOT 20 U/L (<34); BILIRUBIN,TOTAL 0.4 MG/DL (0.3-1.2); BLOOD UREA NITROGEN 24 MG/DL (9-23); CALCIUM LEVEL 7.8 MG/DL (8.3-10.6); CARBON DIOXIDE LEVEL 22 MMOL/L (20-31); CHLORIDE LEVEL 110 MMOL/L (98-107); CREATININE FOR GFR 1.27 MG/DL (0.70-1.30); GLOMERULAR FILTRATION RATE 59.5 (>42); GLUCOSE, FASTING 85 MG/DL (74-106); MAGNESIUM LEVEL 1.6 MG/DL (1.8-2.4); POTASSIUM SERUM 4.2 MMOL/L (3.5-5.1); SODIUM LEVEL 141 MMOL/L (136-145); TOTAL PROTEIN 5.2 G/DL (5.7-8.2)
[2022-12-17 07:13] LABS: ANISOCYTOSIS 2+; EOSINOPHILS 6 % (0-3); LYMPHOCYTES 19 % (16-44); MONOCYTES 6 % (0-5); MYELOCYTES 4 % (0-0); NEUTROPHILS 65 % (28-66); PLATELET ESTIMATE NORMAL (NORMAL)
[2022-12-17] MEDS: BUDESONIDE 180MCG INHALER (PULMICORT FLEXHALER) INH SCH (07:44)
[2022-12-17] MEDS ORDERED: PULM90IN INH (08:51)
[2022-12-17] MEDS ORDERED: ELIQ5TAB PO (08:51)
[2022-12-17] MEDS ORDERED: AMLO1TAB25 PO (08:51)
[2022-12-17] MEDS ORDERED: FERR325T3 PO (08:51)
[2022-12-17] MEDS: FERROUS SULFATE 300MG/5ML UDC LIQUID PO SCH (09:25)
[2022-12-17] MEDS: PANTOPRAZOLE 40MG TAB (PROTONIX) PO SCH (09:25)
[2022-12-17] MEDS: CEFDINIR 300 MG CAP (OMNICEF) PO SCH (09:26)
[2022-12-17] MEDS: COLCHICINE 0.6 MG TABLET PO SCH (09:26)
[2022-12-17] MEDS: LACTOBACILLUS ACIDOPHILUS CAP (BACID) PO SCH ×2 (09:26→12:28)
[2022-12-17] MEDS: MAG SULF 1GM/100ML (MAG RUN) 1 GM in IV 1 EA IV SCH ×3 (09:26→12:29)
[2022-12-17] MEDS: APIXABAN 5 MG TAB (ELIQUIS) PO SCH (09:27)
[2022-12-17 15:12] LABS: BODY FLUID CULTURE Not indicated. (.); LEGIONELLA ANTIGEN URINE Negative (Negative); ORGANISM ID Not indicated. (.); SPECIMEN SOURCE Urine (.); URINE STREP PNEUMONIAE ANTIGEN Negative (Negative)
== END 2022-12-17 14:26 | disposition home health service (06) | DRG 180 ==
LOC: M ED 14:56 → M ED INP 19:20 → M MSPAV 21:00 → M PCU 12-14 13:55
PROVIDERS: ADMIT Internal Medicine; ATTEND Internal Medicine
PROC: 3E0L3GC Introduction of Other Therapeutic Substance into Pleural Cavity, Percutaneous Approach (ICD-10-PCS; 2022-12-14)
PROC: 30233N1 Transfusion of Nonautologous Red Blood Cells into Peripheral Vein, Percutaneous Approach (ICD-10-PCS; 2022-12-14)
PROC: B246ZZZ Ultrasonography of Right and Left Heart (ICD-10-PCS; principal; 2022-12-15)
DX: C34.12 Malignant neoplasm of upper lobe, left bronchus or lung (principal); I26.99 Other pulmonary embolism without acute cor pulmonale; J18.9 Pneumonia, unspecified organism; J91.0 Malignant pleural effusion; J44.1 Chronic obstructive pulmonary disease with (acute) exacerbation; E87.20 Acidosis, unspecified; N17.9 Acute kidney failure, unspecified; I50.32 Chronic diastolic (congestive) heart failure; E46 Unspecified protein-calorie malnutrition; I31.39 Other pericardial effusion (noninflammatory); J44.0 Chronic obstructive pulmonary disease with (acute) lower respiratory infection; D68.59 Other primary thrombophilia; I25.10 Atherosclerotic heart disease of native coronary artery without angina pectoris; I11.0 Hypertensive heart disease with heart failure; K21.9 Gastro-esophageal reflux disease without esophagitis; Z95.5 Presence of coronary angioplasty implant and graft; Z87.891 Personal history of nicotine dependence; D64.9 Anemia, unspecified; E78.5 Hyperlipidemia, unspecified; Z79.899 Other long term (current) drug therapy; R63.4 Abnormal weight loss

== ENCOUNTER 2022-12-21 02:22 | Emergency (ER) | payer MEDICARE ==
[~2022-12-21] VITALS: Ht 172.7 cm; Wt 68.2 kg
[~2022-12-21 02:22] MED LIST changes: +AMLO1TAB25 PO; +ELIQ5TAB PO; +FERR325T3 PO; +PULM90IN INH
[2022-12-21] MEDS ORDERED: ASPIRIN 325 MG TAB PO ONE (03:15)
[2022-12-21 07:45] VITALS: BP 144/77; TEMP 97.1; O2SAT 96
[2022-12-24] MEDS ORDERED: DEXA4TA PO (17:12)
[2022-12-25] MEDS ORDERED: METO1TAB7 (09:28)
== END 2022-12-21 08:00 | disposition short-term general hospital (02) ==
LOC: M ED 02:22
DX: I65.21 Occlusion and stenosis of right carotid artery (principal); Z79.899 Other long term (current) drug therapy; Z79.01 Long term (current) use of anticoagulants; Z79.51 Long term (current) use of inhaled steroids

== ENCOUNTER → 2023-01-29 | Outpatient (CLI) | payer MEDICARE ==
[~2023-01-29] MED LIST changes: +GASTROGRAFIN SOLUTION 30ML As Ordered ONE; +ISOVUE-370 76% 100ML VIAL As Ordered ONE; +METO1TAB7; +MORP1SOL4 PO
== END ==
LOC: M RAD 13:32
PROVIDERS: ATTEND Internal Medicine Medical Oncology
DX: C34.90 Malignant neoplasm of unspecified part of unspecified bronchus or lung (principal)
CPT/HCPCS: 71260; 74177; Q9963; Q9967

== ENCOUNTER 2023-03-26 13:16 | Inpatient (IN) | payer MEDICARE ==
[~2023-03-26] VITALS: Ht 172.7 cm; Wt 65.8 kg
[~2023-03-26 13:16] MED LIST changes: -GASTROGRAFIN SOLUTION 30ML As Ordered ONE; -ISOVUE-370 76% 100ML VIAL As Ordered ONE; +MAGN400T2 PO; -METO1TAB7
[2023-03-26] MEDS ORDERED: HYDR-3719 PO (13:36)
[2023-03-26 14:48] LABS: BASO # 0.1 10^3/uL (0.0-0.2); BASO % 0.4 % (0.0-1.0); EOS # 0.9 10^3/uL (0.0-0.5); EOS % 6.4 % (0.0-3.0); HEMATOCRIT 38.7 % (42.0-52.0); HEMOGLOBIN 12.1 g/dl (13.5-17.5); LYMPH # 1.5 10^3/uL (1.5-5.0); MEAN CORPUSCULAR HEMOGLOBIN 30.3 pg (27.0-33.0); MEAN CORPUSCULAR HGB CONC 31.3 g/dl (32.0-36.5); MEAN CORPUSCULAR VOLUME 96.8 fl (80.0-96.0); MONO # 1.2 10^3/uL (0.0-0.8); MONO % 8.7 % (2.0-8.0); NEUTROPHILS # 9.8 10^3/uL (1.5-8.5); NEUTROPHILS % 72.9 % (36.0-66.0); PLATELET COUNT, AUTOMATED 237 10^3/uL (150-450); WHITE BLOOD COUNT 13.4 10^3/uL (4.0-10.0)
[2023-03-26 15:08] LABS: ALBUMIN 2.2 G/DL (3.2-5.2); ALKALINE PHOSPHATASE 164 U/L (46-116); ALT/SGPT 28 U/L (7.0-40); AST/SGOT 25 U/L (<34); BILIRUBIN,DIRECT 0.2 MG/DL (<0.4); BILIRUBIN,TOTAL 0.4 MG/DL (0.3-1.2); BLOOD UREA NITROGEN 24 MG/DL (9-23); CALCIUM LEVEL 8.8 MG/DL (8.3-10.6); CARBON DIOXIDE LEVEL 27 MMOL/L (20-31); CHLORIDE LEVEL 107 MMOL/L (98-107); CREATININE FOR GFR 1.46 MG/DL (0.70-1.30); GLOMERULAR FILTRATION RATE 50.5 (>42); GLUCOSE, FASTING 116 MG/DL (74-106); POTASSIUM SERUM 4.4 MMOL/L (3.5-5.1); SODIUM LEVEL 143 MMOL/L (136-145); TOTAL PROTEIN 6.1 G/DL (5.7-8.2)
[2023-03-26] MEDS ORDERED: ISOVUE-370 76% 100ML VIAL As Ordered ONE (15:14)
[2023-03-26] MEDS ORDERED: IPRATROPIUM 0.5MG/ALBUTEROL 2.5MG INH SOL UD 3ML (DUONEB) NEB ONE (15:15)
[2023-03-26 15:21] LABS: CK-MB VALUE MASS < 1.0 NG/ML (<3.6)
[2023-03-26 15:23] LABS: CPK CREATINE PHOSPHOKINASE 28 U/L (46-171); MB/CK RELATIVE INDEX 3.57 (< OR =4)
[2023-03-26 15:26] LABS: FREE T4 1.02 NG/DL (0.89-1.76); THYROID STIMULATING HORMONE 0.615 uIU/ML (0.55-4.78)
[2023-03-26] MEDS ORDERED: cefTRIAXone SOD 2 GM in D5W MINI-BAG PLUS 50 ML IV ONE (16:45)
[2023-03-26 16:49] LABS: CK-MB VALUE MASS < 1.0 NG/ML (<3.6)
[2023-03-26 16:50] LABS: CPK CREATINE PHOSPHOKINASE 27 U/L (46-171)
[2023-03-26] MEDS ORDERED: PIPERACILLIN/TAZOBACTAM SOD 3.375 GM in D5W MINI-BAG PLUS 50 ML IV SCH (18:10)
[2023-03-26 19:49] VITALS: BP 108/66; TEMP 97.7
[2023-03-26] MEDS ORDERED: BUDESONIDE 0.5 MG/2 ML INHALATION SUSPENSION INH SCH (20:00)
[2023-03-26] MEDS ORDERED: PIPERACILLIN/TAZOBACTAM SOD 4.5 GM in D5W MINI-BAG PLUS 50 ML IV SCH (20:00)
[2023-03-26] MEDS ORDERED: FORMOTEROL FUMARATE 20 MCG/2 ML INHALATION SOLUTION (PERFOROMIST) INH SCH (20:00)
[2023-03-26] MEDS ORDERED: LevoFLOXacin IV 750 MG in IV 1 EA IV SCH (20:00)
[2023-03-26] MEDS: methylPREDNISolone 125MG 2ML VIAL IV SCH (20:15)
[2023-03-26] MEDS: IPRATROPIUM 0.5MG/ALBUTEROL 2.5MG INH SOL UD 3ML (DUONEB) NEB SCH (21:18)
[2023-03-26] MEDS: SYMBICORT 160/4.5MCG INHALER 6GM INH SCH (21:18)
[2023-03-26] MEDS ORDERED: HYDR-3713 PO (22:47)
[2023-03-26] MEDS ORDERED: ELIQ5TAB PO (22:48)
[2023-03-26] MEDS ORDERED: COLC0.6T47 PO (22:51)
[2023-03-26] MEDS ORDERED: FOLI400T5 PO (22:52)
[2023-03-26] MEDS ORDERED: MAGN400T2 PO (22:54)
[2023-03-26] MEDS ORDERED: MORP10SO PO (23:00)
[2023-03-26] MEDS ORDERED: ONDA-84 PO (23:02)
[2023-03-26] MEDS ORDERED: HOME MED LIST COMPLETE! XX SCH (23:05)
[2023-03-27] MEDS ORDERED: NORCO, ANEXSIA 5/325MG TABLET (HYDROcodone/ACETAMINOPHEN) PO PRN (00:30)
[2023-03-27] MEDS: IPRATROPIUM 0.5MG/ALBUTEROL 2.5MG INH SOL UD 3ML (DUONEB) NEB SCH ×2 (01:16→07:40)
[2023-03-27 06:07] LABS: BASO % 0.1 % (0.0-1.0); EOS % 0.2 % (0.0-3.0); HEMATOCRIT 34.5 % (42.0-52.0); HEMOGLOBIN 10.6 g/dl (13.5-17.5); LYMPH # 0.7 10^3/uL (1.5-5.0); LYMPH % 7.9 % (24.0-44.0); MEAN CORPUSCULAR HEMOGLOBIN 29.8 pg (27.0-33.0); MEAN CORPUSCULAR HGB CONC 30.7 g/dl (32.0-36.5); MEAN CORPUSCULAR VOLUME 96.9 fl (80.0-96.0); MONO # 0.2 10^3/uL (0.0-0.8); MONO % 2.1 % (2.0-8.0); NEUTROPHILS # 8.2 10^3/uL (1.5-8.5); NEUTROPHILS % 89.3 % (36.0-66.0); PLATELET COUNT, AUTOMATED 211 10^3/uL (150-450); RED BLOOD COUNT 3.56 10^6/uL (4.30-6.10); WHITE BLOOD COUNT 9.2 10^3/uL (4.0-10.0)
[2023-03-27 06:23] VITALS: BP 94/59; TEMP 98.1; O2SAT 96
[2023-03-27 06:30] LABS: CALCIUM LEVEL 8.3 MG/DL (8.3-10.6); CREATININE FOR GFR 1.49 MG/DL (0.70-1.30); GLOMERULAR FILTRATION RATE 49.4 (>42); POTASSIUM SERUM 4.7 MMOL/L (3.5-5.1)
[2023-03-27] MEDS: SYMBICORT 160/4.5MCG INHALER 6GM INH SCH (07:40)
[2023-03-27] MEDS: methylPREDNISolone 125MG 2ML VIAL IV SCH (08:10)
[2023-03-27] MEDS ORDERED: LEVO1TAB40 PO (08:55)
[2023-03-27 10:01] VITALS: BP 128/69
[2023-03-28] MEDS ORDERED: LevoFLOXacin 750 MG TABLET PO SCH (20:00)
== END 2023-03-27 09:00 | disposition home or self-care (01) | DRG 542 ==
LOC: M ED 13:16 → M ED INP 18:09 → M MSPAV 19:42
PROVIDERS: ADMIT Internal Medicine Nephrology; ATTEND Internal Medicine Nephrology
DX: M84.58XA Pathological fracture in neoplastic disease, other specified site, initial encounter for fracture (principal); J18.9 Pneumonia, unspecified organism; J91.0 Malignant pleural effusion; C34.12 Malignant neoplasm of upper lobe, left bronchus or lung; C78.01 Secondary malignant neoplasm of right lung; I31.39 Other pericardial effusion (noninflammatory); E46 Unspecified protein-calorie malnutrition; C78.6 Secondary malignant neoplasm of retroperitoneum and peritoneum; R18.8 Other ascites; K57.90 Diverticulosis of intestine, part unspecified, without perforation or abscess without bleeding; K64.9 Unspecified hemorrhoids; J44.9 Chronic obstructive pulmonary disease, unspecified; M54.2 Cervicalgia; I25.10 Atherosclerotic heart disease of native coronary artery without angina pectoris; I12.9 Hypertensive chronic kidney disease with stage 1 through stage 4 chronic kidney disease, or unspecified chronic kidney disease; K21.9 Gastro-esophageal reflux disease without esophagitis; D64.9 Anemia, unspecified; R00.0 Tachycardia, unspecified; N18.30 Chronic kidney disease, stage 3 unspecified; R59.0 Localized enlarged lymph nodes; Z79.01 Long term (current) use of anticoagulants; Z79.899 Other long term (current) drug therapy; Z79.69 Long term (current) use of other immunomodulators and immunosuppressants; Z86.711 Personal history of pulmonary embolism; Z86.73 Personal history of transient ischemic attack (TIA), and cerebral infarction without residual deficits; Z95.5 Presence of coronary angioplasty implant and graft; Z86.010 Personal history of colon polyps; Z87.891 Personal history of nicotine dependence

== ENCOUNTER 2023-04-03 03:08 | Inpatient (IN) | payer MEDICARE ==
[2023-04-03] VITALS (50 sets, daily range): BP systolic 77–127; BP diastolic 46–75; TEMP 97.7–98.1; O2SAT 84–100
[~2023-04-03] VITALS: Ht 172.7 cm; Wt 69.9 kg
[~2023-04-03 03:08] MED LIST changes: +FOLI400T5 PO; +HYDR-3719 PO; +LEVO1TAB40 PO; +MORP10SO PO
[2023-04-03 03:32] LABS: VENOUS BASE EXCESS -1.7 (-2.0-2.0); VENOUS HCO3 24.7 MMOL/L (23.0-27.0); VENOUS O2 SATURATION 47.4 % (60.0-80.0); VENOUS PARTIAL PRESSURE CO2 49.9 mmHg (38.0-50.0); VENOUS PARTIAL PRESSURE O2 30.1 mmHg (30.0-50.0); VENOUS PH 7.313 UNITS (7.330-7.430); VENOUS STANDARD HCO3 22.2 MMOL/L; VENOUS TOTAL CO2 26.3 MMOL/L (24.0-28.0)
[2023-04-03 03:38] LABS: BASO % 0.2 % (0.0-1.0); EOS # 0.6 10^3/uL (0.0-0.5); EOS % 4.1 % (0.0-3.0); HEMATOCRIT 29.9 % (42.0-52.0); HEMOGLOBIN 9.1 g/dl (13.5-17.5); LYMPH # 2.4 10^3/uL (1.5-5.0); LYMPH % 17.5 % (24.0-44.0); MEAN CORPUSCULAR HEMOGLOBIN 29.6 pg (27.0-33.0); MEAN CORPUSCULAR HGB CONC 30.4 g/dl (32.0-36.5); MEAN CORPUSCULAR VOLUME 97.4 fl (80.0-96.0); MONO # 1.3 10^3/uL (0.0-0.8); MONO % 9.4 % (2.0-8.0); NEUTROPHILS # 9.2 10^3/uL (1.5-8.5); NEUTROPHILS % 67.4 % (36.0-66.0); PLATELET COUNT, AUTOMATED 213 10^3/uL (150-450); RED BLOOD COUNT 3.07 10^6/uL (4.30-6.10); WHITE BLOOD COUNT 13.7 10^3/uL (4.0-10.0)
[2023-04-03 04:00] LABS: ALBUMIN 1.9 G/DL (3.2-5.2); ALKALINE PHOSPHATASE 127 U/L (46-116); ALT/SGPT 15 U/L (7.0-40); AST/SGOT 14 U/L (<34); BILIRUBIN,DIRECT < 0.1 MG/DL (<0.4); BILIRUBIN,TOTAL 0.2 MG/DL (0.3-1.2); BLOOD UREA NITROGEN 28 MG/DL (9-23); CALCIUM LEVEL 7.2 MG/DL (8.3-10.6); CARBON DIOXIDE LEVEL 25 MMOL/L (20-31); CHLORIDE LEVEL 108 MMOL/L (98-107); CREATININE FOR GFR 2.25 MG/DL (0.70-1.30); GLOMERULAR FILTRATION RATE 30.7 (>42); GLUCOSE, FASTING 113 MG/DL (74-106); POTASSIUM SERUM 4.5 MMOL/L (3.5-5.1); SODIUM LEVEL 143 MMOL/L (136-145)
[2023-04-03 04:02] LABS: INR 1.93; PROTHROMBIN TIME 21.6 SECONDS (12.5-14.5)
[2023-04-03 04:03] LABS: PARTIAL THROMBOPLASTIN TIME 43.8 SECONDS (24.8-34.2)
[2023-04-03 04:12] LABS: AMYLASE < 20 U/L (30-118)
[2023-04-03] MEDS ORDERED: NS 1,000 ML IV ONE ×2 (05:10→07:30)
[2023-04-03] MEDS ORDERED: PIPERACILLIN/TAZOBACTAM SOD 3.375 GM in D5W MINI-BAG PLUS 50 ML IV ONE (05:10)
[2023-04-03] MEDS ORDERED: HYDR-4571 PO (06:43)
[2023-04-03] MEDS ORDERED: METO1TAB7 PO (06:43)
[2023-04-03] MEDS ORDERED: HOME MED LIST COMPLETE! XX SCH (06:45)
[2023-04-03] MEDS ORDERED: LEVALBUTEROL 1.25MG 0.5ML CONCENTRATE NEB NEB PRN (07:05)
[2023-04-03] MEDS ORDERED: ceFAZolin SOD 1 GM in D5W MINI-BAG PLUS 50 ML IV ONE (07:05)
[2023-04-03] MEDS ORDERED: ACETAMINOPHEN TAB 650MG DOSE (2X325MG) PO PRN (07:05)
[2023-04-03] MEDS ORDERED: KCL 20MEQ IN D5/NS 1000ML 1,000 ML IV SCH (07:05)
[2023-04-03] MEDS ORDERED: ONDANSETRON 4MG 2ML VIAL IV PRN (07:05)
[2023-04-03] MEDS ORDERED: BISACODYL 10MG SUPP PR PRN (07:05)
[2023-04-03] MEDS ORDERED: PERCOCET 5MG/325MG TAB PO PRN (07:05)
[2023-04-03] MEDS: LEVALBUTEROL 1.25MG 0.5ML CONCENTRATE NEB NEB SCH ×3 (08:00→19:58)
[2023-04-03] MEDS ORDERED: MIDAZOLAM INJ 2MG/2ML VIAL As Ordered ONE ×2 (08:09→08:10)
[2023-04-03] MEDS ORDERED: LIDOCAINE 1% MDV 20ML VIAL As Ordered ONE ×2 (08:11→08:39)
[2023-04-03] MEDS: MOM 30ML SUSPENSION UDC PO SCH (09:00)
[2023-04-03] MEDS: DOCUSATE SODIUM 100MG CAPSULE PO SCH ×2 (09:00→20:10)
[2023-04-03] MEDS ORDERED: MORPHINE 2 MG/ML 1ML VIAL As Ordered ONE (09:01)
[2023-04-03] MEDS ORDERED: MORPHINE 4 MG/ML 1ML VIAL IV ONE ×2 (09:05→09:25)
[2023-04-03] MEDS ORDERED: MIDAZOLAM INJ 2MG/2ML VIAL IV ONE (09:10)
[2023-04-03] MEDS ORDERED: LIDOCAINE 1% MDV 20ML VIAL IM ONE (09:10)
[2023-04-03] MEDS: D5W/0.9% SODIUM CHLORIDE 1,000 ML IV SCH ×2 (09:17→23:21)
[2023-04-03] MEDS: PANTOPRAZOLE 40MG TAB (PROTONIX) PO SCH (09:21)
[2023-04-03] MEDS ORDERED: MORPHINE 2 MG/ML 1ML VIAL IV ONE (09:25)
[2023-04-03 09:32] LABS: ABG BASE EXCESS -6.6 (-2.0-2.0); ABG HCO3 19.7 MMOL/L (22.0-26.0); ABG O2 SATURATION 23.7 % (95.0-99.0); ABG PARTIAL PRESSURE CO2 42.9 mmHg (35.0-45.0); ABG pH (ARTERIAL) 7.279 UNITS (7.350-7.450)
[2023-04-03 09:46] LABS: PH BODY FLUID 7.214 UNITS (NOT ESTABLISHED); SOURCE, BODY FLUID pH PERICARDIAL
[2023-04-03 09:59] LABS: APPEARANCE, BODY FLUID CLOUDY (CLEAR); SOURCE, BODY FLUID PERICARDIAL
[2023-04-03 10:27] LABS: SOURCE, BODY FLUID ALBUMIN PERICARDIAL
[2023-04-03 10:32] LABS: SOURCE, BODY FLUID GLUCOSE PERICARDIAL; SOURCE, BODY FLUID TRIG PERICARDIAL; TRIGLYCERIDE, BODY FLUID 124 MG/DL (NOT ESTABLISHED)
[2023-04-03 10:34] LABS: AMYLASE, BODY FLUID 24 U/L (NOT ESTABLISHED); CHOLESTEROL, BODY FLUID 98 MG/DL (NOT ESTABLISHED); SOURCE, BODY FLUID AMYLASE PERICARDIAL; SOURCE, BODY FLUID CHOL PERICARDIAL; SOURCE, BODY FLUID TOT PROTEIN PERICARDIAL; TOTAL PROTEIN, BODY FLUID 4.3 G/DL (NOT ESTABLISHED)
[2023-04-03 10:43] LABS: LDH, BODY FLUID > 750 U/L (NOT ESTABLISHED); SOURCE, BODY FLUID LDH PERICARDIAL
[2023-04-03] MEDS ORDERED: PIPERACILLIN/TAZOBACTAM SOD 2.25 GM in D5W MINI-BAG PLUS 50 ML IV SCH (11:15)
[2023-04-03] MEDS ORDERED: SODIUM CHLORIDE 0.9% 1000ML IV ONE (11:20)
[2023-04-03 11:40] LABS: HEMATOCRIT 28.7 % (42.0-52.0); HEMOGLOBIN 8.7 g/dl (13.5-17.5)
[2023-04-03] MEDS: COLCHICINE 0.6 MG TABLET PO SCH ×2 (11:47→20:10)
[2023-04-03] MEDS: PIPERACILLIN/TAZOBACTAM SOD 3.375 GM in D5W MINI-BAG PLUS 50 ML IV SCH ×3 (13:10→23:19)
[2023-04-03] MEDS: NOREPINEPHRINE 4MG IN D5 250ML 4 MG in IV 1 EA IV SCH ×2 (15:32)
[2023-04-03] MEDS: PERCOCET 5MG/325MG TAB PO PRN ×2 (17:41→23:23)
[2023-04-03 18:39] LABS: PROCALCITONIN 0.14 ng/ml
[2023-04-04] VITALS (43 sets, daily range): BP systolic 93–142; BP diastolic 52–75; TEMP 97.5–98.3; O2SAT 94–100
[2023-04-04] MEDS: LEVALBUTEROL 1.25MG 0.5ML CONCENTRATE NEB NEB SCH ×4 (00:22→19:09)
[2023-04-04] MEDS: NOREPINEPHRINE 4MG IN D5 250ML 4 MG in IV 1 EA IV SCH ×8 (01:56→17:55)
[2023-04-04 04:56] LABS: BASO % 0.2 % (0.0-1.0); EOS # 0.5 10^3/uL (0.0-0.5); HEMATOCRIT 27.6 % (42.0-52.0); HEMOGLOBIN 8.6 g/dl (13.5-17.5); LYMPH # 1.7 10^3/uL (1.5-5.0); LYMPH % 13.2 % (24.0-44.0); MEAN CORPUSCULAR HEMOGLOBIN 30.1 pg (27.0-33.0); MEAN CORPUSCULAR HGB CONC 31.2 g/dl (32.0-36.5); MEAN CORPUSCULAR VOLUME 96.5 fl (80.0-96.0); MONO # 1.1 10^3/uL (0.0-0.8); MONO % 8.3 % (2.0-8.0); NEUTROPHILS # 9.5 10^3/uL (1.5-8.5); NEUTROPHILS % 72.2 % (36.0-66.0); PLATELET COUNT, AUTOMATED 211 10^3/uL (150-450); RED BLOOD COUNT 2.86 10^6/uL (4.30-6.10); WHITE BLOOD COUNT 13.1 10^3/uL (4.0-10.0)
[2023-04-04 05:22] LABS: CALCIUM LEVEL 6.8 MG/DL (8.3-10.6); CREATININE FOR GFR 1.96 MG/DL (0.70-1.30); POTASSIUM SERUM 4.5 MMOL/L (3.5-5.1)
[2023-04-04] MEDS: PIPERACILLIN/TAZOBACTAM SOD 3.375 GM in D5W MINI-BAG PLUS 50 ML IV SCH (05:40)
[2023-04-04] MEDS: PERCOCET 5MG/325MG TAB PO PRN ×3 (05:40→18:22)
[2023-04-04] MEDS: MOM 30ML SUSPENSION UDC PO SCH (09:00)
[2023-04-04] MEDS: DOCUSATE SODIUM 100MG CAPSULE PO SCH ×2 (09:00→20:21)
[2023-04-04] MEDS: PANTOPRAZOLE 40MG TAB (PROTONIX) PO SCH (09:50)
[2023-04-04] MEDS: COLCHICINE 0.6 MG TABLET PO SCH ×2 (09:50→20:22)
[2023-04-04] MEDS: APIXABAN 5 MG TAB (ELIQUIS) PO SCH ×2 (12:32→20:22)
[2023-04-05] VITALS (11 sets, daily range): BP systolic 92–123; BP diastolic 51–66; TEMP 97.4–98.5; O2SAT 95–100
[2023-04-05] MEDS: NOREPINEPHRINE 4MG IN D5 250ML 4 MG in IV 1 EA IV SCH ×2 (00:21)
[2023-04-05] MEDS: LEVALBUTEROL 1.25MG 0.5ML CONCENTRATE NEB NEB SCH ×3 (02:53→13:15)
[2023-04-05] MEDS: PERCOCET 5MG/325MG TAB PO PRN ×2 (04:18→08:52)
[2023-04-05 05:18] LABS: BASO % 0.2 % (0.0-1.0); EOS # 0.5 10^3/uL (0.0-0.5); EOS % 4.9 % (0.0-3.0); HEMATOCRIT 26.8 % (42.0-52.0); HEMOGLOBIN 8.3 g/dl (13.5-17.5); LYMPH # 1.5 10^3/uL (1.5-5.0); LYMPH % 14.1 % (24.0-44.0); MEAN CORPUSCULAR HEMOGLOBIN 29.6 pg (27.0-33.0); MEAN CORPUSCULAR VOLUME 95.7 fl (80.0-96.0); MONO # 0.7 10^3/uL (0.0-0.8); MONO % 6.9 % (2.0-8.0); NEUTROPHILS # 7.8 10^3/uL (1.5-8.5); NEUTROPHILS % 72.9 % (36.0-66.0); PLATELET COUNT, AUTOMATED 182 10^3/uL (150-450); WHITE BLOOD COUNT 10.6 10^3/uL (4.0-10.0)
[2023-04-05] MEDS: MOM 30ML SUSPENSION UDC PO SCH (08:50)
[2023-04-05] MEDS: PANTOPRAZOLE 40MG TAB (PROTONIX) PO SCH (08:51)
[2023-04-05] MEDS: COLCHICINE 0.6 MG TABLET PO SCH (08:51)
[2023-04-05] MEDS: DOCUSATE SODIUM 100MG CAPSULE PO SCH (08:52)
[2023-04-05] MEDS: APIXABAN 5 MG TAB (ELIQUIS) PO SCH (08:52)
[2023-04-05] MEDS ORDERED: METOPROLOL SUCC (TopROL XL) 50MG **XL** TAB PO SCH (09:00)
[2023-04-05] MEDS ORDERED: COLC0.6T47 PO (13:41)
[2023-04-05] MEDS ORDERED: METO1TAB7 PO (13:41)
[2023-04-06 11:38] LABS: CALCIUM LEVEL 7.3 MG/DL (8.8-10.2); CREATININE FOR GFR 1.3 MG/DL (0.7-1.5); GLOMERULAR FILTRATION RATE 57.8 (>42); POTASSIUM SERUM 4.3 MEQ/L (3.6-5.0)
== END 2023-04-05 14:15 | disposition home or self-care (01) | DRG 180 ==
LOC: M ED 03:08 → EDBD 03:08 → M ED 06:54 → M ICU 07:01
PROVIDERS: ADMIT Internal Medicine; ATTEND Internal Medicine
PROC: 0W9D30Z Drainage of Pericardial Cavity with Drainage Device, Percutaneous Approach (ICD-10-PCS; principal; 2023-04-03)
PROC: B246ZZZ Ultrasonography of Right and Left Heart (ICD-10-PCS; 2023-04-03)
DX: C34.12 Malignant neoplasm of upper lobe, left bronchus or lung (principal); R57.0 Cardiogenic shock; E46 Unspecified protein-calorie malnutrition; E87.20 Acidosis, unspecified; J96.10 Chronic respiratory failure, unspecified whether with hypoxia or hypercapnia; J91.0 Malignant pleural effusion; I31.31 Malignant pericardial effusion in diseases classified elsewhere; N17.9 Acute kidney failure, unspecified; I25.10 Atherosclerotic heart disease of native coronary artery without angina pectoris; D63.8 Anemia in other chronic diseases classified elsewhere; J44.9 Chronic obstructive pulmonary disease, unspecified; K21.9 Gastro-esophageal reflux disease without esophagitis; K57.90 Diverticulosis of intestine, part unspecified, without perforation or abscess without bleeding; M54.2 Cervicalgia; N18.9 Chronic kidney disease, unspecified; D63.0 Anemia in neoplastic disease; K64.9 Unspecified hemorrhoids; Z86.010 Personal history of colon polyps; Z95.5 Presence of coronary angioplasty implant and graft; Z86.73 Personal history of transient ischemic attack (TIA), and cerebral infarction without residual deficits; Z86.711 Personal history of pulmonary embolism; Z87.891 Personal history of nicotine dependence; Z95.828 Presence of other vascular implants and grafts; Z79.01 Long term (current) use of anticoagulants; Z79.899 Other long term (current) drug therapy; Z79.69 Long term (current) use of other immunomodulators and immunosuppressants

== ENCOUNTER 2023-04-17 15:12 | Inpatient (IN) | payer MEDICARE ==
[~2023-04-17] VITALS: Ht 172.7 cm; Wt 66.9 kg
[~2023-04-17 15:12] MED LIST changes: +HYDR-4571 PO
[2023-04-17 16:04] LABS: BASO # 0.1 10^3/uL (0.0-0.2); BASO % 0.3 % (0.0-1.0); EOS # 0.7 10^3/uL (0.0-0.5); EOS % 4.7 % (0.0-3.0); HEMATOCRIT 38.1 % (42.0-52.0); HEMOGLOBIN 11.7 g/dl (13.5-17.5); LYMPH # 1.6 10^3/uL (1.5-5.0); LYMPH % 10.5 % (24.0-44.0); MEAN CORPUSCULAR HEMOGLOBIN 28.5 pg (27.0-33.0); MEAN CORPUSCULAR HGB CONC 30.7 g/dl (32.0-36.5); MEAN CORPUSCULAR VOLUME 92.7 fl (80.0-96.0); MONO % 6.4 % (2.0-8.0); NEUTROPHILS # 11.9 10^3/uL (1.5-8.5); NEUTROPHILS % 77.3 % (36.0-66.0); PLATELET COUNT, AUTOMATED 238 10^3/uL (150-450); RED BLOOD COUNT 4.11 10^6/uL (4.30-6.10); WHITE BLOOD COUNT 15.4 10^3/uL (4.0-10.0)
[2023-04-17 16:17] LABS: INR 1.48; PROTHROMBIN TIME 17.5 SECONDS (12.5-14.5)
[2023-04-17 16:26] LABS: CK-MB VALUE MASS < 1.0 NG/ML (<3.6)
[2023-04-17 16:28] LABS: ALBUMIN 2.1 G/DL (3.2-5.2); ALKALINE PHOSPHATASE 161 U/L (46-116); ALT/SGPT 13 U/L (7.0-40); AST/SGOT 15 U/L (<34); BILIRUBIN,DIRECT 0.1 MG/DL (<0.4); BILIRUBIN,TOTAL 0.4 MG/DL (0.3-1.2); BLOOD UREA NITROGEN 25 MG/DL (9-23); CALCIUM LEVEL 8.5 MG/DL (8.3-10.6); CARBON DIOXIDE LEVEL 26 MMOL/L (20-31); CHLORIDE LEVEL 106 MMOL/L (98-107); CPK CREATINE PHOSPHOKINASE 16 U/L (46-171); GLUCOSE, FASTING 121 MG/DL (74-106); MB/CK RELATIVE INDEX 6.25 (< OR =4); SODIUM LEVEL 141 MMOL/L (136-145); TOTAL PROTEIN 5.8 G/DL (5.7-8.2)
[2023-04-17] MEDS ORDERED: ISOVUE-370 76% 100ML VIAL As Ordered ONE (18:09)
[2023-04-17] MEDS ORDERED: PIPERACILLIN/TAZOBACTAM SOD 4.5 GM in D5W MINI-BAG PLUS 50 ML IV ONE (18:10)
[2023-04-17 19:22] LABS: CK-MB VALUE MASS < 1.0 NG/ML (<3.6)
[2023-04-17 19:24] LABS: CPK CREATINE PHOSPHOKINASE < 15 U/L (46-171)
[2023-04-17] MEDS ORDERED: MED REC IN PROGRESS XX SCH (19:30)
[2023-04-17] MEDS ORDERED: ACETAMINOPHEN TAB 650MG DOSE (2X325MG) PO PRN (19:50)
[2023-04-17] MEDS ORDERED: MOM 30ML SUSPENSION UDC PO PRN (19:50)
[2023-04-17] MEDS ORDERED: METO1TAB7 PO (20:25)
[2023-04-17] MEDS ORDERED: HOME MED LIST COMPLETE! XX SCH (20:30)
[2023-04-17] MEDS ORDERED: NITROGLYCERIN 0.4MG SUBL TABLET SL PRN (21:05)
[2023-04-17] MEDS ORDERED: ONDANSETRON 4MG TAB PO PRN (21:05)
[2023-04-17] MEDS ORDERED: ALBUTEROL 90 MCG/ACT 8GM HFA INHALER INH PRN (21:05)
[2023-04-17] MEDS ORDERED: MORPHINE SULFATE ORAL SOLN 10 MG/5 ML UD PO PRN (21:05)
[2023-04-17] MEDS ORDERED: NORCO, ANEXSIA 5/325MG TABLET (HYDROcodone/ACETAMINOPHEN) PO PRN ×2 (21:05)
[2023-04-17 21:09] VITALS: BP 136/69; TEMP 97; O2SAT 99
[2023-04-18 00:20] VITALS: BP 119/59; TEMP 97.4; O2SAT 100
[2023-04-18] MEDS: PIPERACILLIN/TAZOBACTAM SOD 3.375 GM in D5W MINI-BAG PLUS 50 ML IV SCH ×4 (00:27→18:22)
[2023-04-18 03:49] VITALS: BP 108/61; TEMP 96.6; O2SAT 96
[2023-04-18 06:22] LABS: HEMATOCRIT 33.8 % (42.0-52.0); HEMOGLOBIN 10.4 g/dl (13.5-17.5); MEAN CORPUSCULAR HEMOGLOBIN 28.5 pg (27.0-33.0); MEAN CORPUSCULAR HGB CONC 30.8 g/dl (32.0-36.5); MEAN CORPUSCULAR VOLUME 92.6 fl (80.0-96.0); PLATELET COUNT, AUTOMATED 212 10^3/uL (150-450); RED BLOOD COUNT 3.65 10^6/uL (4.30-6.10); WHITE BLOOD COUNT 14.7 10^3/uL (4.0-10.0)
[2023-04-18 07:06] LABS: CALCIUM LEVEL 8.5 MG/DL (8.3-10.6); CREATININE FOR GFR 1.51 MG/DL (0.70-1.30); GLOMERULAR FILTRATION RATE 48.6 (>42)
[2023-04-18 07:17] LABS: PROCALCITONIN 0.4 ng/ml
[2023-04-18 07:45] VITALS: BP 117/69; TEMP 97; O2SAT 98
[2023-04-18] MEDS ORDERED: ALTEPLASE 2MG/2ML VIAL XX ONE (10:00)
[2023-04-18] MEDS ORDERED: PILL CUTTER 1 EACH XX ONE (11:29)
[2023-04-18] MEDS: FOLIC ACID 1MG TAB PO SCH (11:31)
[2023-04-18] MEDS: MAGNESIUM OXIDE 400MG TAB (MAG-OX) PO SCH (11:31)
[2023-04-18] MEDS: METOPROLOL SUCC (TopROL XL) 50MG **XL** TAB PO SCH (11:31)
[2023-04-18] MEDS: PANTOPRAZOLE 40MG TAB (PROTONIX) PO SCH (11:31)
[2023-04-18] MEDS: COLCHICINE 0.6 MG TABLET PO SCH ×2 (11:31→20:54)
[2023-04-18 11:48] VITALS: BP 130/58; TEMP 96.5; O2SAT 98
[2023-04-18 15:49] VITALS: BP 102/61; TEMP 97.7; O2SAT 93
[2023-04-18 20:32] VITALS: BP 100/65; TEMP 97.1; O2SAT 99
[2023-04-18] MEDS ORDERED: ATORVASTATIN 20 MG TAB PO SCH (21:00)
[2023-04-19] VITALS: BP 107/63; TEMP 98; O2SAT 96
[2023-04-19] MEDS: PIPERACILLIN/TAZOBACTAM SOD 3.375 GM in D5W MINI-BAG PLUS 50 ML IV SCH ×3 (01:58→13:06)
[2023-04-19 04:42] VITALS: BP 114/56; TEMP 97.6; O2SAT 98
[2023-04-19 07:45] LABS: BASO # 0.1 10^3/uL (0.0-0.2); BASO % 0.4 % (0.0-1.0); EOS # 0.9 10^3/uL (0.0-0.5); EOS % 5.8 % (0.0-3.0); HEMATOCRIT 32.8 % (42.0-52.0); HEMOGLOBIN 10.2 g/dl (13.5-17.5); LYMPH # 1.6 10^3/uL (1.5-5.0); LYMPH % 9.9 % (24.0-44.0); MEAN CORPUSCULAR HEMOGLOBIN 28.7 pg (27.0-33.0); MEAN CORPUSCULAR HGB CONC 31.1 g/dl (32.0-36.5); MEAN CORPUSCULAR VOLUME 92.1 fl (80.0-96.0); MONO % 9.9 % (2.0-8.0); NEUTROPHILS # 11.7 10^3/uL (1.5-8.5); NEUTROPHILS % 72.8 % (36.0-66.0); PLATELET COUNT, AUTOMATED 194 10^3/uL (150-450); RED BLOOD COUNT 3.56 10^6/uL (4.30-6.10)
[2023-04-19 07:48] VITALS: BP 100/58; TEMP 97.4; O2SAT 97
[2023-04-19 08:31] LABS: MONO # 1.6 10^3/uL (0.0-0.8)
[2023-04-19 09:36] LABS: CALCIUM LEVEL 8.1 MG/DL (8.3-10.6); CREATININE FOR GFR 1.53 MG/DL (0.70-1.30); GLOMERULAR FILTRATION RATE 47.9 (>42); POTASSIUM SERUM 4.8 MMOL/L (3.5-5.1)
[2023-04-19] MEDS: MAGNESIUM OXIDE 400MG TAB (MAG-OX) PO SCH (09:51)
[2023-04-19] MEDS: FOLIC ACID 1MG TAB PO SCH (09:51)
[2023-04-19] MEDS: COLCHICINE 0.6 MG TABLET PO SCH (09:51)
[2023-04-19] MEDS: PANTOPRAZOLE 40MG TAB (PROTONIX) PO SCH (09:51)
[2023-04-19 09:56] VITALS: BP 100/58
[2023-04-19] MEDS: METOPROLOL SUCC (TopROL XL) 50MG **XL** TAB PO SCH (09:56)
[2023-04-19] MEDS ORDERED: AMOX875T2 PO (11:12)
[2023-04-19 12:45] VITALS: BP 96/59; TEMP 97.7; O2SAT 98
== END 2023-04-19 18:30 | disposition home health service (06) | DRG 180 ==
LOC: M ED 15:12 → EDBD 15:12 → M ED INP 19:49 → M PCU 21:05
PROVIDERS: ADMIT Internal Medicine; ATTEND Internal Medicine Nephrology
PROC: 3E0L3GC Introduction of Other Therapeutic Substance into Pleural Cavity, Percutaneous Approach (ICD-10-PCS; principal; 2023-04-18)
DX: C34.12 Malignant neoplasm of upper lobe, left bronchus or lung (principal); E43 Unspecified severe protein-calorie malnutrition; J18.9 Pneumonia, unspecified organism; J91.0 Malignant pleural effusion; I31.31 Malignant pericardial effusion in diseases classified elsewhere; C79.9 Secondary malignant neoplasm of unspecified site; D64.9 Anemia, unspecified; I25.10 Atherosclerotic heart disease of native coronary artery without angina pectoris; I12.9 Hypertensive chronic kidney disease with stage 1 through stage 4 chronic kidney disease, or unspecified chronic kidney disease; J44.9 Chronic obstructive pulmonary disease, unspecified; K21.9 Gastro-esophageal reflux disease without esophagitis; K57.90 Diverticulosis of intestine, part unspecified, without perforation or abscess without bleeding; K64.9 Unspecified hemorrhoids; M54.2 Cervicalgia; R53.1 Weakness; N18.30 Chronic kidney disease, stage 3 unspecified; N40.0 Benign prostatic hyperplasia without lower urinary tract symptoms; R53.81 Other malaise; Z86.010 Personal history of colon polyps; Z95.5 Presence of coronary angioplasty implant and graft; Z86.711 Personal history of pulmonary embolism; Z79.01 Long term (current) use of anticoagulants; Z86.73 Personal history of transient ischemic attack (TIA), and cerebral infarction without residual deficits; Z79.899 Other long term (current) drug therapy

== ENCOUNTER 2023-04-29 06:56 | Inpatient (IN) | payer MEDICARE ==
[~2023-04-29] VITALS: Ht 172.7 cm; Wt 66.0 kg
[~2023-04-29 06:56] MED LIST changes: +AMOX875T2 PO
[2023-04-29] MEDS ORDERED: IPRATROPIUM 0.5MG/ALBUTEROL 2.5MG INH SOL UD 3ML (DUONEB) NEB ONE (07:20)
[2023-04-29] MEDS ORDERED: ALBUTEROL SULFATE 2.5MG/0.5ML INH NEB SOLN INH ONE (07:20)
[2023-04-29] MEDS ORDERED: methylPREDNISolone 125MG 2ML VIAL IV ONE (07:20)
[2023-04-29 07:56] LABS: ABG BASE EXCESS -3.1 (-2.0-2.0); ABG HCO3 19.8 MMOL/L (22.0-26.0); ABG O2 SATURATION 96.2 % (95.0-99.0); ABG PARTIAL PRESSURE CO2 29.1 mmHg (35.0-45.0); ABG PARTIAL PRESSURE O2 83.4 mmHg (75.0-100.0); ABG STANDARD HCO3 21.9 MMOL/L. (22.0-26.0); ABG TOTAL CO2 20.7 MMOL/L (23.0-31.0); ABG pH (ARTERIAL) 7.451 UNITS (7.350-7.450)
[2023-04-29 07:56] LABS: BASO # 0.1 10^3/uL (0.0-0.2); BASO % 0.4 % (0.0-1.0); EOS # 0.5 10^3/uL (0.0-0.5); EOS % 2.4 % (0.0-3.0); HEMATOCRIT 37.6 % (42.0-52.0); HEMOGLOBIN 11.2 g/dl (13.5-17.5); LYMPH # 1.5 10^3/uL (1.5-5.0); LYMPH % 6.9 % (24.0-44.0); MEAN CORPUSCULAR HEMOGLOBIN 27.1 pg (27.0-33.0); MEAN CORPUSCULAR HGB CONC 29.8 g/dl (32.0-36.5); MEAN CORPUSCULAR VOLUME 90.8 fl (80.0-96.0); MONO # 1.1 10^3/uL (0.0-0.8); MONO % 5.2 % (2.0-8.0); NEUTROPHILS % 83.2 % (36.0-66.0); PLATELET COUNT, AUTOMATED 293 10^3/uL (150-450); RED BLOOD COUNT 4.14 10^6/uL (4.30-6.10); WHITE BLOOD COUNT 21.6 10^3/uL (4.0-10.0)
[2023-04-29 08:18] LABS: CK-MB VALUE MASS < 1.0 NG/ML (<3.6)
[2023-04-29 08:20] LABS: CPK CREATINE PHOSPHOKINASE 17 U/L (46-171); MB/CK RELATIVE INDEX 5.88 (< OR =4)
[2023-04-29 08:21] LABS: ALKALINE PHOSPHATASE 154 U/L (46-116); ALT/SGPT 12 U/L (7.0-40); AST/SGOT 14 U/L (<34); BILIRUBIN,DIRECT 0.1 MG/DL (<0.4); BILIRUBIN,TOTAL 0.3 MG/DL (0.3-1.2); BLOOD UREA NITROGEN 54 MG/DL (9-23); CALCIUM LEVEL 9.3 MG/DL (8.3-10.6); CARBON DIOXIDE LEVEL 22 MMOL/L (20-31); CHLORIDE LEVEL 104 MMOL/L (98-107); CREATININE FOR GFR 1.55 MG/DL (0.70-1.30); GLOMERULAR FILTRATION RATE 47.2 (>42); GLUCOSE, FASTING 137 MG/DL (74-106); POTASSIUM SERUM 5.7 MMOL/L (3.5-5.1); SODIUM LEVEL 139 MMOL/L (136-145)
[2023-04-29 08:22] LABS: THYROXINE (T4) 9.1 UG/DL (4.5-10.9)
[2023-04-29] MEDS ORDERED: NS 1,000 ML IV ONE (08:25)
[2023-04-29] MEDS ORDERED: PIPERACILLIN/TAZOBACTAM SOD 4.5 GM in D5W MINI-BAG PLUS 50 ML IV ONE (08:25)
[2023-04-29] MEDS ORDERED: ISOVUE-370 76% 100ML VIAL As Ordered ONE (08:38)
[2023-04-29] MEDS ORDERED: APIXABAN 5 MG TAB (ELIQUIS) PO SCH (09:00)
[2023-04-29 09:21] LABS: CK-MB VALUE MASS < 1.0 NG/ML (<3.6)
[2023-04-29 09:26] LABS: CPK CREATINE PHOSPHOKINASE 24 U/L (46-171); MB/CK RELATIVE INDEX 4.16 (< OR =4)
[2023-04-29] MEDS ORDERED: NS 980 ML in IV 1 EA IV ONE (10:30)
[2023-04-29] MEDS ORDERED: MED REC IN PROGRESS XX SCH (10:40)
[2023-04-29 10:43] LABS: PH BODY FLUID 7.543 UNITS (NOT ESTABLISHED); SOURCE, BODY FLUID pH PLEURAL
[2023-04-29 10:59] LABS: SOURCE, BODY FLUID PLEURAL
[2023-04-29 11:00] LABS: APPEARANCE, BODY FLUID CLOUDY (CLEAR); PLEURAL FL COLOR ORANGE (COLORLESS)
[2023-04-29 11:11] LABS: PROCALCITONIN 0.57 ng/ml
[2023-04-29 11:11] LABS: SOURCE, BODY FLUID ALBUMIN PERINEAL
[2023-04-29 11:16] LABS: SOURCE, BODY FLUID GLUCOSE PLEURAL; SOURCE, BODY FLUID TRIG PLEURAL; TRIGLYCERIDE, BODY FLUID 36 MG/DL (NOT ESTABLISHED)
[2023-04-29 11:18] LABS: AMYLASE, BODY FLUID 40 U/L (NOT ESTABLISHED); CHOLESTEROL, BODY FLUID 40 MG/DL (NOT ESTABLISHED); SOURCE, BODY FLUID AMYLASE PLEURAL; SOURCE, BODY FLUID CHOL PLEURAL; SOURCE, BODY FLUID TOT PROTEIN PLEURAL; TOTAL PROTEIN, BODY FLUID 2.2 G/DL (NOT ESTABLISHED)
[2023-04-29 11:27] LABS: LDH, BODY FLUID > 750 U/L (NOT ESTABLISHED); SOURCE, BODY FLUID LDH PLEURAL
[2023-04-29] MEDS ORDERED: HOME MED LIST COMPLETE! XX SCH (11:45)
[2023-04-29 12:02] LABS: LDH LACTATE DEHYDROGENASE 480 U/L (120-246)
[2023-04-29] MEDS ORDERED: ALBUTEROL 90 MCG/ACT 8GM HFA INHALER INH PRN (12:05)
[2023-04-29] MEDS ORDERED: ONDANSETRON 4MG TAB PO PRN (12:05)
[2023-04-29] MEDS ORDERED: NITROGLYCERIN 0.4MG SUBL TABLET SL PRN (12:05)
[2023-04-29] MEDS ORDERED: NORCO, ANEXSIA 5/325MG TABLET (HYDROcodone/ACETAMINOPHEN) PO PRN (12:05)
[2023-04-29] MEDS ORDERED: PATIROMER SORBITEX CALCIUM 8.4 GM POWDER PACKET (VELTASSA) PO ONE (13:00)
[2023-04-29] MEDS ORDERED: VANCOMYCIN HCL 1,000 MG, VIAL MATE ADAPTER 1 EACH in D5W 250 ML IV SCH ×2 (13:15→14:00)
[2023-04-29] MEDS ORDERED: NS 1,000 ML IV SCH (13:15)
[2023-04-29] MEDS ORDERED: LEVALBUTEROL 1.25MG 0.5ML CONCENTRATE NEB INH SCH (14:00)
[2023-04-29 14:48] VITALS: O2SAT 95
[2023-04-29] MEDS ORDERED: LEVALBUTEROL 1.25MG 0.5ML CONCENTRATE NEB INH PRN (14:55)
[2023-04-29] MEDS ORDERED: VANCOMYCIN HCL 500 MG in D5W MINI-BAG PLUS 100 ML IV ONE (15:00)
[2023-04-29] MEDS ORDERED: PIPERACILLIN/TAZOBACTAM SOD 4.5 GM in D5W MINI-BAG PLUS 50 ML IV SCH (15:00)
[2023-04-29] MEDS ORDERED: PIPERACILLIN/TAZOBACTAM SOD 3.375 GM in D5W MINI-BAG PLUS 50 ML IV SCH ×2 (15:00)
[2023-04-29] MEDS ORDERED: ALTEPLASE 2MG/2ML VIAL XX ONE (16:00)
[2023-04-29 16:29] VITALS: BP 114/59; TEMP 97.9; O2SAT 97
[2023-04-29 17:00] VITALS: O2SAT 97
[2023-04-29 18:00] VITALS: O2SAT 98
[2023-04-29] MEDS ORDERED: LORazepam 1 MG TAB PO PRN (18:30)
[2023-04-29] MEDS ORDERED: HYOSCYAMINE SULFATE 0.125 MG SUBL TABLET PO PRN (18:30)
[2023-04-29] MEDS ORDERED: CALCIUM CARBONATE 500 MG CHEW U/D PO PRN (18:30)
[2023-04-29 20:00] VITALS: BP 116/69; TEMP 96.5; O2SAT 100
[2023-04-29] MEDS: guaiFENesin ER TABLET 600 MG TAB PO SCH (20:01)
[2023-04-29] MEDS: NORCO, ANEXSIA 5/325MG TABLET (HYDROcodone/ACETAMINOPHEN) PO PRN (20:35)
[2023-04-29] MEDS ORDERED: ATORVASTATIN 20 MG TAB PO SCH (21:00)
[2023-04-30] MEDS ORDERED: LORazepam 1 MG TAB PO PRN (08:45)
[2023-04-30] MEDS ORDERED: MAGNESIUM OXIDE 400MG TAB (MAG-OX) PO SCH (09:00)
[2023-04-30] MEDS: guaiFENesin ER TABLET 600 MG TAB PO SCH ×2 (09:19→20:35)
[2023-04-30] MEDS: PANTOPRAZOLE 40MG TAB (PROTONIX) PO SCH (09:19)
[2023-04-30] MEDS: NORCO, ANEXSIA 5/325MG TABLET (HYDROcodone/ACETAMINOPHEN) PO PRN (09:20)
[2023-04-30] MEDS: MORPHINE 10MG/0.5ML ORAL CONCENTRATE SOLUTION U/D SL PRN ×5 (10:32→20:46)
[2023-05-01] MEDS: MORPHINE 10MG/0.5ML ORAL CONCENTRATE SOLUTION U/D SL PRN ×6 (06:32→15:48)
[2023-05-01] MEDS: PANTOPRAZOLE 40MG TAB (PROTONIX) PO SCH (08:40)
[2023-05-01] MEDS ORDERED: LORazepam 2 MG/ML 1ML VIAL IV PRN ×2 (08:40→10:05)
[2023-05-01] MEDS: guaiFENesin ER TABLET 600 MG TAB PO SCH (08:40)
[2023-05-01] MEDS ORDERED: MORPHINE 10MG/0.5ML ORAL CONCENTRATE SOLUTION U/D SL ONE (08:40)
[2023-05-01] MEDS ORDERED: MORPHINE SULF IN 0.9% NACL 100 MG in IV 1 EA IV SCH ×2 (11:00)
[2023-05-01] MEDS ORDERED: MORP1SOL5 PO ×2 (13:18→14:43)
[2023-05-01] MEDS ORDERED: HYOS125TA PO (13:18)
[2023-05-01] MEDS ORDERED: NEBU1EAC78 MC (13:18)
[2023-05-01] MEDS ORDERED: LEVA0.6322 IN (13:18)
[2023-05-01] MEDS ORDERED: ATIV1TAB10 PO ×2 (13:18→14:43)
[2023-05-01] MEDS ORDERED: LORA1TAB23 PO (15:11)
== END 2023-05-01 16:00 | disposition hospice, home (50) | DRG 189 ==
LOC: EDBD 06:56 → M ED 06:56 → M ED INP 11:27 → ENRESERV 15:00 → M PCU 16:05
PROVIDERS: ADMIT Internal Medicine; ATTEND Internal Medicine
PROC: 3E0L3GC Introduction of Other Therapeutic Substance into Pleural Cavity, Percutaneous Approach (ICD-10-PCS; principal; 2023-04-29)
DX: J96.01 Acute respiratory failure with hypoxia (principal); J18.9 Pneumonia, unspecified organism; J44.0 Chronic obstructive pulmonary disease with (acute) lower respiratory infection; E87.20 Acidosis, unspecified; J91.0 Malignant pleural effusion; C34.92 Malignant neoplasm of unspecified part of left bronchus or lung; E46 Unspecified protein-calorie malnutrition; C78.6 Secondary malignant neoplasm of retroperitoneum and peritoneum; M84.48XA Pathological fracture, other site, initial encounter for fracture; I31.39 Other pericardial effusion (noninflammatory); R18.8 Other ascites; N18.30 Chronic kidney disease, stage 3 unspecified; Z51.5 Encounter for palliative care; Z66 Do not resuscitate; D63.8 Anemia in other chronic diseases classified elsewhere; K74.60 Unspecified cirrhosis of liver; I25.10 Atherosclerotic heart disease of native coronary artery without angina pectoris; E78.5 Hyperlipidemia, unspecified; I12.9 Hypertensive chronic kidney disease with stage 1 through stage 4 chronic kidney disease, or unspecified chronic kidney disease; K21.9 Gastro-esophageal reflux disease without esophagitis; M54.2 Cervicalgia; G89.29 Other chronic pain; M10.9 Gout, unspecified; Z92.21 Personal history of antineoplastic chemotherapy; Z92.3 Personal history of irradiation; Z79.01 Long term (current) use of anticoagulants; Z79.899 Other long term (current) drug therapy; Z79.69 Long term (current) use of other immunomodulators and immunosuppressants; Z86.711 Personal history of pulmonary embolism; Z86.73 Personal history of transient ischemic attack (TIA), and cerebral infarction without residual deficits; Z95.5 Presence of coronary angioplasty implant and graft